=== PATIENT | female | born 1985 | race Caucasian/White ===

== ENCOUNTER 2020-04-25 21:51 | Emergency (ER) | payer MEDICAID ==
[~2020-04-25] VITALS: Ht 175.3 cm; Wt 72.7 kg
[~2020-04-25 21:51] MED LIST: LEVO750T21 PO
[2020-04-25 21:52] VITALS: BP 168/107
== END 2020-04-25 23:31 ==
LOC: ER 21:51
DX: S60.221A Contusion of right hand, initial encounter (principal); S60.511A Abrasion of right hand, initial encounter; F10.10 Alcohol abuse, uncomplicated; Z88.8 Allergy status to other drugs, medicaments and biological substances; Z79.899 Other long term (current) drug therapy; V89.2XXA Person injured in unspecified motor-vehicle accident, traffic, initial encounter; Y93.89 Activity, other specified; Y92.89 Other specified places as the place of occurrence of the external cause; Y99.8 Other external cause status; Y90.0 Blood alcohol level of less than 20 mg/100 ml
CPT/HCPCS: 73130; 99283

== ENCOUNTER 2020-08-03 | Inpatient (IN) | payer MEDICAID ==
[~2020-08-03] VITALS: Ht 175.3 cm; Wt 71.6 kg
[2020-08-03 01:33] LABS: BASOPHILS # (AUTO) 0.1 X10'3 (0-0.2); BASOPHILS % (AUTO) 1.2 % (0-1); EOSINOPHILS % (AUTO) 0.3 % (0-6); HEMOGLOBIN 14.1 g/dl (12.0-16.0); LYMPHOCYTES # (AUTO) 0.7 X10'3 (1.1-4.8); MEAN CORPUSCULAR HEMOGLOBIN 33.5 PG (27.0-31.0); MEAN CORPUSCULAR HGB CONC 34.3 g/dL (33.0-36.5); MEAN CORPUSCULAR VOLUME 97.5 FL (78-98); MEAN PLATELET VOLUME 7.4 FL (7.4-10.4); MONOCYTES # (AUTO) 0.7 X10'3 (0-0.9); MONOCYTES % (AUTO) 13.4 % (2-12); NEUTROPHILS # (AUTO) 3.5 X10'3 (1.8-7.7); NEUTROPHILS % (AUTO) 70.1 % (42-75); PLATELET COUNT 143 X10'3 (140-440); RED BLOOD COUNT 4.21 X10'6 (4.20-5.60); RED CELL DISTRIBUTION WIDTH 14.9 % (11.5-14.5); WHITE BLOOD COUNT 4.9 X10'3 (4.5-11.0)
[2020-08-03 01:47] LABS: ALANINE AMINOTRANSFERASE 26 U/L (12-78); ALBUMIN 4.3 G/DL (3.4-5.0); ALBUMIN/GLOBULIN RATIO 1.1 (1.1-1.5); ALKALINE PHOSPHATASE 64 IU/L (46-116); ANION GAP 12 (8-16); ASPARTATE AMINO TRANSFERASE 39 U/L (10-37); BILIRUBIN,TOTAL 1.6 MG/DL (0.1-1.0); BLOOD UREA NITROGEN 8 MG/DL (7-18); CHLORIDE 98 MMOL/L (99-107); GLUCOSE 108 MG/DL (70-104); POTASSIUM 3.1 MMOL/L (3.5-5.1); SODIUM 136 MMOL/L (135-145); TOTAL CARBON DIOXIDE 25.6 MMOL/L (24-32); TOTAL PROTEIN 8.3 G/DL (6.4-8.2); eGFR 62 ML/MIN
[2020-08-03 01:50] LABS: TROPONIN I < 0.04 NG/ML (0.0-0.05)
[2020-08-03] MEDS ORDERED: ondansetron/PF 4mg/2ml inj IV ONE (01:50)
[2020-08-03] MEDS ORDERED: thiamine 100mg/ml 2ml inj. IV ONE (01:50)
[2020-08-03] MEDS: phenobarbital sod 130mg/ml inj. IV ONE ×2 (01:55→02:17)
[2020-08-03] MEDS: dextrose 5%-normal saline 1,000 ML IV SCH ×5 (01:56→05:50)
[2020-08-03] MEDS ORDERED: phenobarbital sod 130mg/ml inj. IV ONE ×2 (02:35→03:10)
[2020-08-03 02:46] LABS: HCG SERUM QL NEGATIVE
--- NOTE | 2020-08-03 03:00 | NUR ---
Phenobarbital cancelled by pharmacist resulting in delay of medication administration.
[2020-08-03] MEDS ORDERED: potassium Cl 20 mEq SR tablet PO STA (04:22)
[2020-08-03] MEDS ORDERED: magnesium Cl slow-release 64mg tablet PO PRN (05:40)
[2020-08-03] MEDS ORDERED: magnesium 2GM in 50ml NS 50 ML IV PRN (05:40)
[2020-08-03] MEDS ORDERED: potassium CL 10mEq/100ml bag 100 ML IV PRN ×2 (05:40)
[2020-08-03] MEDS ORDERED: acetaminophen 325mg tablet PO PRN (05:40)
[2020-08-03] MEDS ORDERED: normal saline 1000ml 1,000 ML IV SCH (05:40)
[2020-08-03] MEDS ORDERED: magnesium 4gm in 100ml NS 100 ML IV PRN (05:40)
[2020-08-03] MEDS ORDERED: ondansetron/PF 4mg/2ml inj IV PRN (05:40)
[2020-08-03] MEDS ORDERED: potassium Cl 20 mEq SR tablet PO PRN (05:40)
[2020-08-03] MEDS ORDERED: thiamine inj. 100 MG in normal saline 100ml IV soln 100 ML IV ONE (05:55)
[2020-08-03 07:15] VITALS: BP 151/104
[2020-08-03] MEDS: LORazepam 1 MG tablet PO PRN ×2 (07:45→22:30)
[2020-08-03] MEDS: K and/or MAG REPLACEMENT MC SCH ×2 (08:00→20:00)
[2020-08-03] MEDS: pantoprazole 40 MG vial IV SCH (08:37)
[2020-08-03 09:39] VITALS: BP 131/85
[2020-08-03] MEDS: thiamine inj. 100 MG, MVI, adult No.4 with vit. K 10 ML in dextrose 5% water 500ml 500 ML IV SCH ×3 (10:28)
[2020-08-03] MEDS: potassium Cl 20 mEq SR tablet PO PRN ×2 (10:33→15:47)
[2020-08-03] MEDS ORDERED: NO HOME MEDS (12:47)
[2020-08-03] MEDS: carVEDilol 3.125mg tablet PO SCH ×2 (13:11→20:02)
[2020-08-03 13:30] VITALS: BP_SYST 127; BP_SYST 134; BP_SYST 135; BP_DIAS 92; BP_DIAS 93
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
--- NOTE | 2020-08-03 18:06 | NUR ---
Student documentation: I have reviewed and agree with all interventions, assessments performed and documented by Natividad Garcia
--- NOTE | 2020-08-03 18:22 | NUR ---
Patient report given to Magdaleno ARAUJO
[2020-08-03 20:00] VITALS: BP_SYST 115; BP_SYST 121; BP_SYST 123; BP_DIAS 81; BP_DIAS 89; BP_DIAS 90
[2020-08-03 22:00] VITALS: BP 145/102
--- NOTE | 2020-08-03 22:00 | NUR ---
Received report from Magdaleno ARAUJO
--- NOTE | 2020-08-03 22:18 | NUR ---
Physical Therapy Director called saying pt in SVT in the 160's, assessed patient she was in the bathroom having an emesis. Back to her bed, and the heart rate went down to the 110's per Physical Therapy Director.
[2020-08-04 06:00] VITALS: BP 123/81
--- NOTE | 2020-08-04 06:14 | NUR ---
Problems reprioritized. Patient report given, questions answered & plan of care reviewed with Jacki ARAUJO.
[2020-08-04 06:33] LABS: BASOPHILS % (AUTO) 1.1 % (0-1); EOSINOPHILS # (AUTO) 0.1 X10'3 (0-0.9); EOSINOPHILS % (AUTO) 3.5 % (0-6); HEMATOCRIT 37.1 % (35.0-45.0); HEMOGLOBIN 12.7 g/dl (12.0-16.0); LYMPHOCYTES # (AUTO) 0.6 X10'3 (1.1-4.8); LYMPHOCYTES % (AUTO) 17.6 % (21-51); MEAN CORPUSCULAR HGB CONC 34.3 g/dL (33.0-36.5); MEAN CORPUSCULAR VOLUME 99.2 FL (78-98); MEAN PLATELET VOLUME 7.6 FL (7.4-10.4); MONOCYTES # (AUTO) 0.5 X10'3 (0-0.9); MONOCYTES % (AUTO) 14.2 % (2-12); NEUTROPHILS # (AUTO) 2.2 X10'3 (1.8-7.7); NEUTROPHILS % (AUTO) 63.6 % (42-75); PLATELET COUNT 108 X10'3 (140-440); RED BLOOD COUNT 3.74 X10'6 (4.20-5.60); RED CELL DISTRIBUTION WIDTH 14.5 % (11.5-14.5); WHITE BLOOD COUNT 3.5 X10'3 (4.5-11.0)
[2020-08-04 06:37] LABS: ALBUMIN 3.4 G/DL (3.4-5.0); ANION GAP 6 (8-16); BLOOD UREA NITROGEN 9 MG/DL (7-18); BUN/CREATININE RATIO 11.7 (6.6-38.0); CALCIUM 8.4 MG/DL (8.5-10.1); CHLORIDE 102 MMOL/L (99-107); CREATININE 0.77 MG/DL (0.40-0.90); GLUCOSE 94 MG/DL (70-104); MAGNESIUM 1.6 MG/DL (1.5-2.4); POTASSIUM 3.9 MMOL/L (3.5-5.1); SODIUM 134 MMOL/L (135-145); eGFR 84 ML/MIN
[2020-08-04] MEDS: K and/or MAG REPLACEMENT MC SCH (08:00)
[2020-08-04] MEDS ORDERED: lisinopril 5mg tablet PO SCH (08:00)
[2020-08-04] MEDS: thiamine inj. 100 MG, MVI, adult No.4 with vit. K 10 ML in dextrose 5% water 500ml 500 ML IV SCH ×3 (08:55)
[2020-08-04] MEDS: pantoprazole 40 MG vial IV SCH (08:57)
[2020-08-04] MEDS: carVEDilol 3.125mg tablet PO SCH (08:57)
[2020-08-04 10:00] VITALS: BP_SYST 121; BP_SYST 122; BP_DIAS 82; BP_DIAS 84; BP_DIAS 87
[2020-08-04] MEDS ORDERED: FURO-150 PO (10:58)
[2020-08-04] MEDS ORDERED: COR3.125T PO (10:58)
[2020-08-04] MEDS ORDERED: THIA50TA10 PO (10:58)
[2020-08-04] MEDS ORDERED: LISI-642 PO (10:58)
[2020-08-04] MEDS ORDERED: ONDA4TAB6 PO (10:58)
[2020-08-04] MEDS ORDERED: ESOM40CA PO (10:58)
--- NOTE | 2020-08-04 15:19 | NUR ---
pt d/c with instructions, understanding of instructions, as well as information/instruction about community acquire mrsa in her nares, walking out accompanied by nursing staff to private vehicle to go home and f/u w/pcp
== END 2020-08-04 15:03 | disposition home or self-care (01) | DRG 241 ==
LOC: ER 00:01 → ED HOLD 05:40 → ORTHO 4S 07:04
PROVIDERS: ADMIT Internal Medicine; ATTEND Internal Medicine
DX: K29.20 Alcoholic gastritis without bleeding (principal); I11.0 Hypertensive heart disease with heart failure; E86.0 Dehydration; F10.239 Alcohol dependence with withdrawal, unspecified; R00.2 Palpitations; I42.6 Alcoholic cardiomyopathy; R19.7 Diarrhea, unspecified; R55 Syncope and collapse; F12.90 Cannabis use, unspecified, uncomplicated; I50.23 Acute on chronic systolic (congestive) heart failure; N17.9 Acute kidney failure, unspecified; Z79.899 Other long term (current) drug therapy
CPT/HCPCS: 36415; 71045; 80048; 80053; 83735; 83880; 84484; 84703; 85025; 87081; 93005; 93306; 93308; 96374; 96375; 97116; 97161; 99285; C9113; G0378; J2405; J2560; J3411; J7030; J7042; J7060

== ENCOUNTER 2020-08-05 19:48 | Emergency (ER) | payer MEDICAID ==
[~2020-08-05] VITALS: Ht 175.3 cm; Wt 74.9 kg
[~2020-08-05 19:48] MED LIST changes: +COR3.125T PO; +ESOM40CA PO; +FURO-150 PO; -LEVO750T21 PO; +LISI-642 PO; +ONDA4TAB6 PO; +THIA50TA10 PO
--- NOTE | 2020-08-05 20:26 | NUR ---
ACS Protocol orders put in based on patient's EKG rythm and family history. Consulted with Dr. Maria who states to wait on labs and IV and CXR until she sees the patient.
--- NOTE | 2020-08-05 20:56 | NUR ---
Dr. Little in with patient. Dr. Little states no need for labs, IV or CXR at this time. She will be ordering a head CT instead to check for any abnormalities.
--- NOTE | 2020-08-05 21:17 | NUR ---
Pt to CT
[2020-08-05 21:29] VITALS: BP 164/114
== END 2020-08-05 22:33 | disposition home or self-care (01) ==
LOC: ER 19:50
DX: R51.9 Headache, unspecified (principal); Z87.448 Personal history of other diseases of urinary system; Z88.1 Allergy status to other antibiotic agents; Z79.899 Other long term (current) drug therapy
CPT/HCPCS: 70450; 93005; 99284

== ENCOUNTER 2020-09-25 12:11 | Emergency (ER) | payer MEDICAID ==
[~2020-09-25] VITALS: Ht 175.3 cm; Wt 68.7 kg
[2020-09-25 13:12] LABS: BASOPHILS % (AUTO) 0.4 % (0-1); EOSINOPHILS % (AUTO) 0.2 % (0-6); HEMATOCRIT 42.1 % (35.0-45.0); HEMOGLOBIN 14.2 g/dl (12.0-16.0); LYMPHOCYTES # (AUTO) 0.8 X10'3 (1.1-4.8); MEAN CORPUSCULAR HEMOGLOBIN 32.6 PG (27.0-31.0); MEAN CORPUSCULAR HGB CONC 33.8 g/dL (33.0-36.5); MEAN CORPUSCULAR VOLUME 96.6 FL (78-98); MONOCYTES # (AUTO) 0.5 X10'3 (0-0.9); MONOCYTES % (AUTO) 8.4 % (2-12); NEUTROPHILS # (AUTO) 5.1 X10'3 (1.8-7.7); PLATELET COUNT 224 X10'3 (140-440); RED BLOOD COUNT 4.35 X10'6 (4.20-5.60); RED CELL DISTRIBUTION WIDTH 14.8 % (11.5-14.5); WHITE BLOOD COUNT 6.4 X10'3 (4.5-11.0)
[2020-09-25 13:28] LABS: ALANINE AMINOTRANSFERASE 36 U/L (12-78); ALBUMIN 4.4 G/DL (3.4-5.0); ALBUMIN/GLOBULIN RATIO 1.1 (1.1-1.5); ALKALINE PHOSPHATASE 69 IU/L (46-116); ANION GAP 15 (8-16); ASPARTATE AMINO TRANSFERASE 40 U/L (10-37); BILIRUBIN,TOTAL 1.4 MG/DL (0.1-1.0); BLOOD UREA NITROGEN 12 MG/DL (7-18); BUN/CREATININE RATIO 15.8 (6.6-38.0); CHLORIDE 103 MMOL/L (99-107); CREATININE 0.76 MG/DL (0.40-0.90); GLUCOSE 107 MG/DL (70-104); POTASSIUM 3.9 MMOL/L (3.5-5.1); SODIUM 141 MMOL/L (135-145); TOTAL CARBON DIOXIDE 22.8 MMOL/L (24-32); TOTAL PROTEIN 8.5 G/DL (6.4-8.2); eGFR 86 ML/MIN
--- NOTE | 2020-09-25 15:12 | NUR ---
SPOKE TO DR JACKSON REGARDING PATIENT NOT HAVING BEEN SEEN WITH PERSISTENT CHEST PAIN. ORDER RECIEVED FOR ASPIRIN
[2020-09-25] MEDS ORDERED: aspirin 81mg tab.chew PO ONE (15:15)
--- NOTE | 2020-09-25 15:28 | NUR ---
PATIENT IS CURRENTLY TAKING COREG 3.125 MG BID, LISINOPRIL DAILY AND LASIX DAILY
--- NOTE | 2020-09-25 15:30 | NUR ---
PATIENT REPORTS BEING ON A DRINKING BINGE FOR THE LAST 3 DAYS, LAST ETOH AT 6 PM YESTERDAY
--- NOTE | 2020-09-25 15:33 | NUR ---
PATIENT REPORTS DRINKING OVER A PINT OF VODKA AND OR WHISKEY IN THE LAST 3 DAYS, PATIENT IS SLIGHTLY TREMULOUS
[2020-09-25] MEDS ORDERED: ondansetron 4mg rapidly disintigrating tab PO ONE (16:20)
[2020-09-25 17:51] VITALS: BP 127/87
== END 2020-09-25 17:52 | disposition home or self-care (01) ==
LOC: ER 12:12
DX: R00.2 Palpitations (principal); R07.89 Other chest pain; R06.02 Shortness of breath; R11.2 Nausea with vomiting, unspecified; I50.9 Heart failure, unspecified; Z87.440 Personal history of urinary (tract) infections; Z72.89 Other problems related to lifestyle; Z88.1 Allergy status to other antibiotic agents; Z79.899 Other long term (current) drug therapy
CPT/HCPCS: 36415; 71045; 80053; 83880; 84484; 85025; 93005; 99285

== ENCOUNTER 2021-01-30 14:11 | Inpatient (IN) | payer MEDICAID ==
[~2021-01-30] VITALS: Ht 175.3 cm; Wt 59.1 kg
[2021-01-30] MEDS ORDERED: diazepam inj 5 MG/ML inj. IV ONE ×2 (14:25→16:25)
[2021-01-30] MEDS ORDERED: adenosine 3mg/ml 2ml vial IV ONE (14:25)
[2021-01-30] MEDS ORDERED: amiodarone 50MG/ML inj IV ONE (14:30)
[2021-01-30] MEDS ORDERED: amiodarone/D5 360MG/200ML BAG 200 ML IV SCH (14:35)
[2021-01-30 14:45] LABS: BASOPHILS # (AUTO) 0.1 X10'3 (0-0.2); EOSINOPHILS # (AUTO) 0.1 X10'3 (0-0.9); EOSINOPHILS % (AUTO) 1.7 % (0-6); HEMATOCRIT 42.8 % (35.0-45.0); HEMOGLOBIN 14.5 g/dl (12.0-16.0); LYMPHOCYTES # (AUTO) 2.1 X10'3 (1.1-4.8); LYMPHOCYTES % (AUTO) 33.2 % (21-51); MEAN CORPUSCULAR HEMOGLOBIN 33.6 PG (27.0-31.0); MEAN CORPUSCULAR VOLUME 99.1 FL (78-98); MEAN PLATELET VOLUME 7.6 FL (7.4-10.4); MONOCYTES # (AUTO) 0.9 X10'3 (0-0.9); MONOCYTES % (AUTO) 14.2 % (2-12); NEUTROPHILS # (AUTO) 3.1 X10'3 (1.8-7.7); NEUTROPHILS % (AUTO) 49.9 % (42-75); PLATELET COUNT 326 X10'3 (140-440); RED BLOOD COUNT 4.32 X10'6 (4.20-5.60); RED CELL DISTRIBUTION WIDTH 15.2 % (11.5-14.5); WHITE BLOOD COUNT 6.2 X10'3 (4.5-11.0)
[2021-01-30] MEDS ORDERED: thiamine 100mg/ml 2ml inj. IM ONE (14:45)
[2021-01-30] MEDS ORDERED: normal saline 1000ML IV soln IVB ONE (14:45)
[2021-01-30 14:47] LABS: PARTIAL THROMBOPLASTIN TIME 26 SECONDS (22-32)
[2021-01-30 14:55] LABS: ALANINE AMINOTRANSFERASE 23 U/L (12-78); ALBUMIN 2.6 G/DL (3.4-5.0); ALBUMIN/GLOBULIN RATIO 0.5 (1.1-1.5); ALKALINE PHOSPHATASE 86 IU/L (46-116); ANION GAP 22 (8-16); ASPARTATE AMINO TRANSFERASE 40 U/L (10-37); BLOOD UREA NITROGEN 11 MG/DL (7-18); BUN/CREATININE RATIO 11.6 (6.6-38.0); CALCIUM 9.2 MG/DL (8.5-10.1); CHLORIDE 102 MMOL/L (99-107); CREATININE 0.95 MG/DL (0.40-0.90); GLUCOSE 171 MG/DL (70-104); POTASSIUM 3.1 MMOL/L (3.5-5.1); SODIUM 139 MMOL/L (135-145); TOTAL CARBON DIOXIDE 15.3 MMOL/L (24-32); TOTAL PROTEIN 8.2 G/DL (6.4-8.2); eGFR 66 ML/MIN
--- NOTE | 2021-01-30 15:09 | NUR ---
Patient arrived with SOB and chest pain. Dr. Nelson at bedside. Patient in SVT rate 160s, 98% on RA, and SBP >130. Medications administered, see MAR. Patient with improved HR and decreased anxiety but still complaining of 9/10 burning chest pressure.
[2021-01-30] MEDS ORDERED: morphine 4 MG/ML inj SYRINge IV ONE (15:20)
[2021-01-30] MEDS ORDERED: ondansetron/PF 4mg/2ml inj IV ONE (15:40)
[2021-01-30 15:43] LABS: URINE AMPHETAMINE SCREEN POSITIVE (Neg); URINE BARBITUATE SCREEN NEGATIVE (Neg); URINE BENZODIAZEPINES SCREEN NEGATIVE (Neg); URINE CANNABINOID SCREEN NEGATIVE (Neg); URINE COCAINE SCREEN NEGATIVE (Neg); URINE METHADONE SCREEN NEGATIVE (Neg); URINE OPIATE SCREEN NEGATIVE (Neg); URINE PHENCYCLIDINE SCREEN NEGATIVE (Neg)
[2021-01-30] MEDS ORDERED: CARV3.122 PO (16:06)
[2021-01-30] MEDS ORDERED: LISI-790 PO (16:06)
[2021-01-30] MEDS ORDERED: mag hydrox/Alum hydrox/simeth 30ml oral suspension PO PRN (16:20)
[2021-01-30] MEDS ORDERED: HYDROcodone/acetaminophen 10/325mg tab PO PRN (16:20)
[2021-01-30] MEDS ORDERED: morphine 2 MG/ML inj. syringe IV PRN ×2 (16:20)
[2021-01-30] MEDS ORDERED: HYDROcodone/acetaminophen 5mg/325mg tablet PO PRN (16:20)
[2021-01-30] MEDS ORDERED: acetaminophen 325mg tablet PO PRN ×2 (16:20)
[2021-01-30] MEDS ORDERED: magnesium hydroxide 30ml (MOM) UD suspension PO PRN (16:20)
[2021-01-30] MEDS ORDERED: ondansetron/PF 4mg/2ml inj IV PRN (16:20)
[2021-01-30] MEDS ORDERED: normal saline 1000ml 1,000 ML IV ONE (16:25)
[2021-01-30] MEDS ORDERED: haloperidol 5mg tablet PO PRN (16:30)
[2021-01-30] MEDS ORDERED: haloperidol lactate 5mg/ml inj IM PRN (16:30)
[2021-01-30] MEDS ORDERED: thiamine inj. 100 MG in normal saline 100ml IV soln 100 ML IV ONE (16:30)
[2021-01-30 17:53] VITALS: BP 148/77
[2021-01-30] MEDS: LORazepam 2 mg/ml vial IV PRN (19:05)
[2021-01-30 19:20] VITALS: BP 139/87
[2021-01-30] MEDS: carVEDilol 3.125mg tablet PO SCH (19:41)
[2021-01-30 22:00] VITALS: BP 120/82
[2021-01-31] MEDS: LORazepam 2 mg/ml vial IV PRN (01:16)
[2021-01-31 02:00] VITALS: BP 126/75
[2021-01-31 02:46] LABS: BASOPHILS % (AUTO) 1.3 % (0-1); EOSINOPHILS # (AUTO) 0.1 X10'3 (0-0.9); EOSINOPHILS % (AUTO) 3.6 % (0-6); HEMOGLOBIN 11.4 g/dl (12.0-16.0); LYMPHOCYTES # (AUTO) 0.6 X10'3 (1.1-4.8); LYMPHOCYTES % (AUTO) 19.8 % (21-51); MEAN CORPUSCULAR HEMOGLOBIN 34.1 PG (27.0-31.0); MEAN CORPUSCULAR HGB CONC 33.5 g/dL (33.0-36.5); MEAN CORPUSCULAR VOLUME 101.6 FL (78-98); MEAN PLATELET VOLUME 7.6 FL (7.4-10.4); MONOCYTES # (AUTO) 0.4 X10'3 (0-0.9); NEUTROPHILS # (AUTO) 1.9 X10'3 (1.8-7.7); NEUTROPHILS % (AUTO) 62.3 % (42-75); PLATELET COUNT 205 X10'3 (140-440); RED BLOOD COUNT 3.34 X10'6 (4.20-5.60); RED CELL DISTRIBUTION WIDTH 15.4 % (11.5-14.5)
[2021-01-31 02:55] LABS: ALANINE AMINOTRANSFERASE 20 U/L (12-78); ALBUMIN 3.1 G/DL (3.4-5.0); ALKALINE PHOSPHATASE 66 IU/L (46-116); ANION GAP 11 (8-16); ASPARTATE AMINO TRANSFERASE 29 U/L (10-37); BILIRUBIN,TOTAL 1.5 MG/DL (0.1-1.0); BLOOD UREA NITROGEN 18 MG/DL (7-18); BUN/CREATININE RATIO 20.5 (6.6-38.0); CHLORIDE 105 MMOL/L (99-107); CREATININE 0.88 MG/DL (0.40-0.90); GLUCOSE 103 MG/DL (70-104); POTASSIUM 3.6 MMOL/L (3.5-5.1); SODIUM 139 MMOL/L (135-145); TOTAL CARBON DIOXIDE 22.9 MMOL/L (24-32); TOTAL PROTEIN 6.1 G/DL (6.4-8.2); eGFR 72 ML/MIN
[2021-01-31 02:58] LABS: MAGNESIUM 1.6 MG/DL (1.5-2.4); PHOSPHORUS 3.7 MG/DL (2.3-4.5)
[2021-01-31 03:16] LABS: TOTAL CELLS COUNTED 100
[2021-01-31 03:17] LABS: PLATELET ESTIMATE NORMAL
[2021-01-31 06:57] VITALS: BP 135/96
[2021-01-31] MEDS: carVEDilol 3.125mg tablet PO SCH (07:45)
[2021-01-31] MEDS ORDERED: thiamine 100mg tablet PO SCH (08:00)
[2021-01-31] MEDS ORDERED: folic acid 1mg tablet PO SCH (08:00)
[2021-01-31] MEDS ORDERED: multivitamins, therapeutics tablet PO SCH (08:00)
[2021-01-31] MEDS ORDERED: folic acid inj. 2 MG, thiamine inj. 100 MG, MVI, adult No.4 with vit. K 10 ML in dextro... IV SCH ×4 (08:00)
[2021-01-31] MEDS ORDERED: lisinopril 5mg tablet PO SCH (08:00)
[2021-01-31] MEDS ORDERED: thiamine tablet PO (09:04)
[2021-01-31] MEDS ORDERED: LORA-269 PO (09:04)
[2021-01-31] MEDS ORDERED: CARV-49 PO (09:04)
[2021-01-31] MEDS ORDERED: folic acid tablet PO (09:04)
[2021-01-31 10:59] VITALS: BP 130/92
[2021-01-31] MEDS ORDERED: NITR0.4T48 SL (11:01)
[2021-02-01] MEDS ORDERED: LORazepam 1 MG tablet PO PRN (16:30)
[2021-02-01] MEDS ORDERED: LORazepam 2 mg/ml vial IV PRN (16:30)
[2021-02-03] MEDS ORDERED: LORazepam 2 mg/ml vial IV PRN (16:30)
[2021-02-03] MEDS ORDERED: LORazepam 1 MG tablet PO PRN (16:30)
== END 2021-01-31 12:33 | disposition home or self-care (01) | DRG 203 ==
LOC: ER 14:12 → ED HOLD 16:18 → MED 3N 17:30
PROVIDERS: ADMIT Internal Medicine; ATTEND Internal Medicine
DX: R07.89 Other chest pain (principal); I42.6 Alcoholic cardiomyopathy; I50.22 Chronic systolic (congestive) heart failure; F10.20 Alcohol dependence, uncomplicated; F15.10 Other stimulant abuse, uncomplicated; Z60.9 Problem related to social environment, unspecified; F17.200 Nicotine dependence, unspecified, uncomplicated; R03.0 Elevated blood-pressure reading, without diagnosis of hypertension; Z91.14 Patient's other noncompliance with medication regimen; Z79.899 Other long term (current) drug therapy; Z73.3 Stress, not elsewhere classified
CPT/HCPCS: 36415; 71045; 80053; 80305; 83735; 83880; 84100; 84484; 85007; 85025; 85610; 85730; 87081; 93005; 96365; 96375; 99291; G0378; J0153; J2060; J2270; J2405; J3360; J3411; J7030

== ENCOUNTER 2021-02-13 21:57 | Emergency (ER) | payer MEDICAID ==
[~2021-02-13] VITALS: Ht 172.7 cm; Wt 68.2 kg
[~2021-02-13 21:57] MED LIST changes: +CARV-49 PO; -COR3.125T PO; -ESOM40CA PO; -FURO-150 PO; -LISI-642 PO; +LISI-790 PO; +LORA-269 PO; +NITR0.4T48 SL; -ONDA4TAB6 PO; -THIA50TA10 PO; +folic acid tablet PO; +thiamine tablet PO
--- NOTE | 2021-02-13 22:15 | NUR ---
PULLED IV OUT, STATING SHE WANTS TO GO HOME
--- NOTE | 2021-02-13 22:25 | NUR ---
CALLED PT'S MOM TO PICK HER UP, SHE IS [place] D/T TAKING A SLEEPING PILL. WAS UNABLE TO PROVIDE ANY CONTACT INFO FOR ANOTHER RIDE
--- NOTE | 2021-02-13 22:33 | NUR ---
PT IS RESTLESS AND CONTINIUES TO TRY TO GET OUT OF BED AND IS UNSTEADY. 2 PERSON ASSIST TO BSC AND PT VOIDING 400 CC'S. PROVIDED HER PHONE TO TRY TO GET HER TO OPEN IT AND FIND ANY CONTACT NUMBERS TO CALL PT NOT ABLE TO PROVIDE US ANY NUBERS.
[2021-02-13 23:08] VITALS: BP 116/73
--- NOTE | 2021-02-14 01:43 | NUR ---
PT SLEEPING, LYING ON HER RIGHT SIDE, RR 16. sTILL UNABLE TO FIND ANY OTHER CONTACT INFORMATION TO GET HER A RIDE HOME. PTS MOTHER WAS CALLED EARLIER BY VAN BAEZ, BUT SHE WAS UNABLE TO GET THE PATIENT AND HAD NO FURTHER INFO FOR ANYONE ELSE TO CONTACT.
--- NOTE | 2021-02-14 02:59 | NUR ---
PT AWAKENED BREIFLY AND TOLD VAN VILCHIS THAT SHE WANTED TO TAKE A TAXI HOME. PT UPDATED THAT WE CANNOT ALLOW HER TO TAKE TAXI HOME IN HER INTOXICATED STATE AND THAT SHE NEEDS SOMEONE TO PHYSICALLY PICK HER UP OR SHE WILL NEED TO METABOLIZE THE ETOH AND CINTIA WILL NOT BE UNTIL MID MORNING. PT IRRITABLE AND STATES "ILL JUST CRASH HERE" BECAUSE SHE DOES NOT WANT HER FIANCE CALLED. WE HAVE NO OTHER NUMBERS OF CONTACTS FOR HER AND SHE IS NOT PROVIDING ANY ADTL NUMBERS OR HER FIANCE'S NUMBER. TRAILHEAD CONSTRUCTION WORKER UPDATED THAT DAY SHIFT IN AM SHOULD TRY TO CALL HER MOTHER AGAIN HER MOTHER COULD NOT DRIVE SAFELE TO COME GET HER EARLIER DUE TO TAKING SLEEPING MEDICATIONS.
--- NOTE | 2021-02-14 05:27 | NUR ---
remains asleep. per dr. ruff once pt awake and can ambulate safely and has a ride home , she is able to discharge. weigh and charge worker tu aware of plan. plan to call pts mother at shift change to see about transport home.
== END 2021-02-14 07:26 | disposition home or self-care (01) ==
LOC: ER 21:58
DX: F10.10 Alcohol abuse, uncomplicated (principal); F10.129 Alcohol abuse with intoxication, unspecified; I50.9 Heart failure, unspecified; Z87.440 Personal history of urinary (tract) infections; Z72.89 Other problems related to lifestyle; Z88.1 Allergy status to other antibiotic agents; Z79.899 Other long term (current) drug therapy; Y90.9 Presence of alcohol in blood, level not specified
CPT/HCPCS: 99283

== ENCOUNTER 2021-08-24 03:20 | Emergency (ER) | payer MEDICAID ==
[~2021-08-24] VITALS: Ht 175.3 cm; Wt 62.0 kg
[~2021-08-24 03:20] MED LIST changes: -LISI-790 PO; +LISI5TAB22 PO
[2021-08-24] MEDS ORDERED: sulfamethoxazole/trimethoprim DS (800/160mg) tablet PO ONE ×2 (03:35→03:45)
[2021-08-24] MEDS ORDERED: CARV-49 PO (03:41)
[2021-08-24] MEDS ORDERED: LISI5TAB22 PO (03:41)
[2021-08-24] MEDS ORDERED: lisinopril 10 MG tablet PO ONE (03:45)
[2021-08-24] MEDS ORDERED: furosemide 20MG tablet PO ONE (03:45)
[2021-08-24] MEDS ORDERED: rifampin 300mg capsule PO SCH (03:45)
[2021-08-24] MEDS ORDERED: carvedilol 6.25mg tablet PO SCH (03:45)
[2021-08-24] MEDS ORDERED: rifampin 300mg capsule PO ONE (03:45)
[2021-08-24] MEDS ORDERED: carvedilol 6.25mg tablet PO ONE (03:45)
[2021-08-24] MEDS ORDERED: lisinopril 2.5mg tablet PO ONE (03:50)
[2021-08-24] MEDS ORDERED: FURO-150 PO (03:58)
[2021-08-24] MEDS ORDERED: SULF1TAB49 PO (03:58)
[2021-08-24 04:25] VITALS: BP 129/91
== END 2021-08-24 04:30 | disposition home or self-care (01) ==
LOC: ER 03:21
DX: A49.02 Methicillin resistant Staphylococcus aureus infection, unspecified site (principal); F15.10 Other stimulant abuse, uncomplicated; I50.9 Heart failure, unspecified; F17.210 Nicotine dependence, cigarettes, uncomplicated; I10 Essential (primary) hypertension; Z59.00 Homelessness unspecified
CPT/HCPCS: 71045; 99284

== ENCOUNTER 2021-10-11 02:01 | Emergency (ER) | payer MEDICAID ==
[~2021-10-11] VITALS: Ht 175.3 cm; Wt 146.0 kg
[2021-10-11 02:43] LABS: EOSINOPHILS % (AUTO) 0.4 % (0-6); HEMOGLOBIN 11.5 g/dl (12.0-16.0); LYMPHOCYTES # (AUTO) 1.6 X10'3 (1.1-4.8); LYMPHOCYTES % (AUTO) 44.7 % (21-51); MEAN CORPUSCULAR HGB CONC 32.7 g/dL (33.0-36.5); MEAN CORPUSCULAR VOLUME 88.6 FL (78-98); MEAN PLATELET VOLUME 7.7 FL (7.4-10.4); MONOCYTES # (AUTO) 0.5 X10'3 (0-0.9); MONOCYTES % (AUTO) 14.6 % (2-12); NEUTROPHILS # (AUTO) 1.4 X10'3 (1.8-7.7); NEUTROPHILS % (AUTO) 39.3 % (42-75); PLATELET COUNT 227 X10'3 (140-440); RED BLOOD COUNT 3.95 X10'6 (4.20-5.60); RED CELL DISTRIBUTION WIDTH 19.5 % (11.5-14.5); WHITE BLOOD COUNT 3.5 X10'3 (4.5-11.0)
[2021-10-11 03:01] LABS: ALANINE AMINOTRANSFERASE 30 U/L (12-78); ALBUMIN 3.4 G/DL (3.4-5.0); ALBUMIN/GLOBULIN RATIO 1.1 (1.1-1.5); ALKALINE PHOSPHATASE 92 IU/L (46-116); ANION GAP 9 (8-16); ASPARTATE AMINO TRANSFERASE 35 U/L (10-37); BILIRUBIN,TOTAL 1.6 MG/DL (0.1-1.0); BLOOD UREA NITROGEN 18 MG/DL (7-18); BUN/CREATININE RATIO 18.8 (6.6-38.0); CALCIUM 8.8 MG/DL (8.5-10.1); CHLORIDE 100 MMOL/L (99-107); CREATININE 0.96 MG/DL (0.40-0.90); GLUCOSE 89 MG/DL (70-104); SODIUM 136 MMOL/L (135-145); TOTAL CARBON DIOXIDE 27.2 MMOL/L (24-32); TOTAL PROTEIN 6.6 G/DL (6.4-8.2); eGFR 65 ML/MIN
[2021-10-11 03:09] LABS: BILIRUBIN,DIRECT 0.4 MG/DL (0-0.3); LIPASE 87 U/L (73-393)
--- NOTE | 2021-10-11 06:30 | NUR ---
first contact with pt, found resting in bed. rr even and unlabored. awaiting second troponin results. no distress.
[2021-10-11 08:21] VITALS: BP 104/74
--- NOTE | 2021-10-11 08:21 | NUR ---
pt awake, ambulated to restroom with steady gait. still reporting pressure in head and neck area. informed pt of negative troponin results, and plan to dc.
== END 2021-10-11 09:12 | disposition home or self-care (01) ==
LOC: ER 02:01
DX: R07.89 Other chest pain (principal); Z20.822 Contact with and (suspected) exposure to COVID-19; R06.02 Shortness of breath; R11.2 Nausea with vomiting, unspecified; R42 Dizziness and giddiness; R45.1 Restlessness and agitation; I11.0 Hypertensive heart disease with heart failure; I50.9 Heart failure, unspecified; Z87.440 Personal history of urinary (tract) infections; Z86.14 Personal history of Methicillin resistant Staphylococcus aureus infection; Z72.89 Other problems related to lifestyle; Z59.00 Homelessness unspecified; Z79.899 Other long term (current) drug therapy
CPT/HCPCS: 36415; 71045; 80048; 80076; 83690; 83880; 84484; 85025; 87635; 93005; 99285; C9803

== ENCOUNTER 2022-02-12 06:39 | Inpatient (IN) | payer MEDICAID ==
[~2022-02-12] VITALS: Ht 175.3 cm; Wt 83.1 kg
[2022-02-12 08:50] LABS: CLARITY,URINE SLIGHTLY CLOUDY (Clear); COLOR,URINE YELLOW (Yellow); GLUCOSE, URINE NEGATIVE (Neg); KETONES,URINE TRACE mg/dl (Neg); LEUKOCYTE ESTERASE ,URINE SMALL (Neg); NITRITES, URINE NEGATIVE (Neg); OCCULT BLOOD,URINE TRACE-INTACT (Neg); PH,URINE 5.5 (4.8-8.0); PROTEIN,URINE NEGATIVE (Neg)
[2022-02-12 08:53] LABS: UA COLLECTION TYPE CLN CATCH MIDSTREAM
[2022-02-12 08:55] LABS: BACTERIA,URINE 4+ /HPF (Neg); RBC,URINE 0-2 /HPF (0-2); SQUAMOUS EPITHELIAL CELL,UR FEW /LPF (FEW)
[2022-02-12 09:19] LABS: HEMOGLOBIN 12.8 g/dl (12.0-16.0); LYMPHOCYTES # (AUTO) 1.5 X10'3 (1.1-4.8); MEAN CORPUSCULAR VOLUME 95.8 FL (78-98); MONOCYTES # (AUTO) 0.6 X10'3 (0-0.9); PLATELET COUNT 102 X10'3 (140-440); WHITE BLOOD COUNT 3.5 X10'3 (4.5-11.0)
[2022-02-12 09:21] LABS: BASOPHILS % (AUTO) 0.7 % (0-1); EOSINOPHILS % (AUTO) 0.6 % (0-6); HEMATOCRIT 37.7 % (35.0-45.0); LYMPHOCYTES % (AUTO) 42.6 % (21-51); MEAN CORPUSCULAR HEMOGLOBIN 32.6 PG (27.0-31.0); MEAN PLATELET VOLUME 8.7 FL (7.4-10.4); MONOCYTES % (AUTO) 16.7 % (2-12); NEUTROPHILS # (AUTO) 1.4 X10'3 (1.8-7.7); NEUTROPHILS % (AUTO) 39.4 % (42-75); RED BLOOD COUNT 3.93 X10'6 (4.20-5.60); RED CELL DISTRIBUTION WIDTH 16.4 % (11.5-14.5)
[2022-02-12 09:38] LABS: ALANINE AMINOTRANSFERASE 68 U/L (12-78); ALBUMIN/GLOBULIN RATIO 0.7 (1.1-1.5); ALKALINE PHOSPHATASE 161 IU/L (46-116); ANION GAP 10 (8-16); ASPARTATE AMINO TRANSFERASE 130 U/L (10-37); BILIRUBIN,TOTAL 2.3 MG/DL (0.1-1.0); BLOOD UREA NITROGEN 16 MG/DL (7-18); BUN/CREATININE RATIO 17.2 (6.6-38.0); CALCIUM 7.9 MG/DL (8.5-10.1); CHLORIDE 80 MMOL/L (99-107); CREATININE 0.93 MG/DL (0.40-0.90); GLUCOSE 111 MG/DL (70-104); POTASSIUM 3.7 MMOL/L (3.5-5.1); TOTAL CARBON DIOXIDE 25.5 MMOL/L (24-32); TOTAL PROTEIN 7.3 G/DL (6.4-8.2); eGFR 67 ML/MIN
[2022-02-12 09:43] LABS: SODIUM 115 MMOL/L (135-145)
[2022-02-12 09:59] LABS: ANISOCYTOSIS 1+; HYPOCHROMASIA 1+; NUCLEATED RED BLOOD CELLS 1 /100WBC (0-0); PLATELET ESTIMATE DECREASED; TOTAL CELLS COUNTED 100
[2022-02-12] MEDS ORDERED: LORazepam 2 mg/ml vial IV ONE (10:30)
[2022-02-12] MEDS ORDERED: normal saline 1000ML IV soln IVB ONE (10:30)
[2022-02-12] MEDS ORDERED: ondansetron/PF 4mg/2ml inj IV ONE (10:30)
[2022-02-12] MEDS ORDERED: cefTRIAXone 1g/NS 100ml IVPB 100 ML IV ONE (10:40)
[2022-02-12 10:57] LABS: HCG SERUM QL NEGATIVE
[2022-02-12 10:58] LABS: MAGNESIUM 1.3 MG/DL (1.5-2.4)
[2022-02-12] MEDS ORDERED: HYDROcodone/acetaminophen 10/325mg tab PO PRN (11:25)
[2022-02-12] MEDS ORDERED: dextrose 50%-water 50ml dispensing syringe IV PRN (11:25)
[2022-02-12] MEDS ORDERED: haloperidol 5mg tablet PO PRN (11:25)
[2022-02-12] MEDS ORDERED: dicyclomine 10 MG capsule PO PRN (11:25)
[2022-02-12] MEDS ORDERED: HYDROcodone/acetaminophen 5mg/325mg tablet PO PRN (11:25)
[2022-02-12] MEDS ORDERED: morphine 2 MG/ML inj. syringe IV PRN ×2 (11:25)
[2022-02-12] MEDS ORDERED: metoclopramide 5 mg/ml inj IV PRN (11:25)
[2022-02-12] MEDS ORDERED: haloperidol lactate 5mg/ml inj IM PRN (11:25)
[2022-02-12] MEDS ORDERED: acetaminophen 325mg tablet PO PRN (11:25)
[2022-02-12] MEDS ORDERED: mag hydrox/Alum hydrox/simeth 30ml oral suspension PO PRN ×2 (11:25)
[2022-02-12] MEDS: normal saline 1000ml 1,000 ML IV SCH ×2 (12:50→21:25)
[2022-02-12] MEDS: thiamine 100mg/ml 2ml inj. IV SCH ×2 (12:50→21:55)
[2022-02-12] MEDS ORDERED: LISI5TAB22 PO (15:05)
[2022-02-12] MEDS ORDERED: METO-384 PO (15:05)
[2022-02-12] MEDS ORDERED: FURO-149 PO (15:07)
[2022-02-12] MEDS ORDERED: SPIR25TA5 PO (15:08)
[2022-02-12] MEDS: LORazepam 2 mg/ml vial IV PRN ×3 (16:07→21:55)
[2022-02-12] MEDS: docusate sod 100mg capsule PO SCH (20:00)
[2022-02-12] MEDS ORDERED: ringers solution, lactated 500ml IV solution IV ONE (20:25)
[2022-02-13] MEDS: LORazepam 2 mg/ml vial IV PRN ×8 (00:25→21:29)
[2022-02-13 01:46] LABS: BASOPHILS % (AUTO) 0.8 % (0-1); EOSINOPHILS % (AUTO) 0.4 % (0-6); HEMATOCRIT 34.7 % (35.0-45.0); LYMPHOCYTES # (AUTO) 1.4 X10'3 (1.1-4.8); LYMPHOCYTES % (AUTO) 26.5 % (21-51); MEAN CORPUSCULAR HEMOGLOBIN 33.1 PG (27.0-31.0); MEAN CORPUSCULAR HGB CONC 34.5 g/dL (33.0-36.5); MEAN CORPUSCULAR VOLUME 96.1 FL (78-98); MEAN PLATELET VOLUME 8.8 FL (7.4-10.4); MONOCYTES # (AUTO) 0.5 X10'3 (0-0.9); MONOCYTES % (AUTO) 9.3 % (2-12); NEUTROPHILS # (AUTO) 3.4 X10'3 (1.8-7.7); PLATELET COUNT 84 X10'3 (140-440); RED BLOOD COUNT 3.61 X10'6 (4.20-5.60); RED CELL DISTRIBUTION WIDTH 16.5 % (11.5-14.5); WHITE BLOOD COUNT 5.4 X10'3 (4.5-11.0)
[2022-02-13 01:49] LABS: ALBUMIN 2.6 G/DL (3.4-5.0); ANION GAP 9 (8-16); BLOOD UREA NITROGEN 12 MG/DL (7-18); BUN/CREATININE RATIO 12.1 (6.6-38.0); CHLORIDE 86 MMOL/L (99-107); CREATININE 0.99 MG/DL (0.40-0.90); GLUCOSE 93 MG/DL (70-104); TOTAL CARBON DIOXIDE 22.6 MMOL/L (24-32); eGFR 63 ML/MIN
[2022-02-13 02:03] LABS: POTASSIUM 4.2 MMOL/L (3.5-5.1)
[2022-02-13] MEDS ORDERED: ringers solution, lactated 500ml IV solution IV ONE (02:10)
[2022-02-13] MEDS: normal saline 1000ml 1,000 ML IV SCH ×3 (02:32→21:39)
--- NOTE | 2022-02-13 05:54 | NUR ---
Filippo rosas in ED - 02/13/22 at 0557 by JONHNY talked to hospitalist dr Gardner three times to talk about pt condition, specifically about the elevated heart rate. doctor states that sticking to the ETOH protocol is all that is needed at this time.
--- NOTE | 2022-02-13 05:58 | NUR ---
talked to hospitalist dr Gardner three times to talk about pt condition, specifically about the elevated heart rate. doctor states that sticking to the ETOH protocol is all that is needed at this time.
[2022-02-13] MEDS: cefTRIAXone 1g/NS 100ml IVPB 100 ML IV SCH (07:28)
[2022-02-13] MEDS: thiamine 100mg/ml 2ml inj. IV SCH ×3 (07:28→21:28)
[2022-02-13] MEDS: docusate sod 100mg capsule PO SCH ×2 (07:56→21:28)
--- NOTE | 2022-02-13 08:20 | NUR ---
provided with breakfast tray, sitting in bed tolerating well.
[2022-02-13] MEDS: folic acid 1mg/0.2ml inj IV SCH (08:25)
--- NOTE | 2022-02-13 12:00 | NUR ---
provided with breakfast tray, sitting in bed tolerating well.
--- NOTE | 2022-02-13 14:00 | NUR ---
visitor at bedside.
--- NOTE | 2022-02-13 15:31 | NUR ---
telephone report to fang schaefer.
--- NOTE | 2022-02-13 15:48 | NUR ---
Pt received to floor on hospital be. She is very sleepy but able to answer all my questions correctly. She keeps on falling asleep in between questions. VS WNL and no pain. Will continue to monitor.
[2022-02-13 16:00] VITALS: BP 109/68
--- NOTE | 2022-02-13 16:02 | NUR ---
Noted pt BMI 16.4 low via chair scaled wt, however pt ht incorrect 81in w/ last admit ht 69in per EMR. True BMI 22.7 at this time appropriate for age. Addendum: 02/13/22 at [address] Amended: Links added.
[2022-02-13 18:00] VITALS: BP 106/73
--- NOTE | 2022-02-13 18:30 | NUR ---
Problems reprioritized. Patient report given, questions answered & plan of care reviewed with VAN Ramirez.
--- NOTE | 2022-02-13 19:07 | NUR ---
Patient in room U 3018. I have received report from VAN REESE and had the opportunity to ask questions and assume patient care. Addendum: 02/13/22 at 1907 by Ashley Poe RN Amended: Links added.
[2022-02-13 20:00] VITALS: BP 106/73
--- NOTE | 2022-02-13 20:10 | NUR ---
PT SHOWERED SELF IN THE BATHROOM BUT FOODED THE FLOOR AND CLEANED IT UP. IV SITE SAVED,
--- NOTE | 2022-02-13 21:25 | NUR ---
PT MEDICATED WITH ZOFRAN COMPLAINT OF NAUSEA AND ALSO GOING THROUGH dT'S MEDICATED WITH ZOFRAN WELL.
[2022-02-13] MEDS: ondansetron/PF 4mg/2ml inj IV PRN (21:28)
[2022-02-13 22:00] VITALS: BP 106/73
[2022-02-14] VITALS (7 sets, daily range): BP systolic 103–126; BP diastolic 64–94
[2022-02-14] MEDS: LORazepam 2 mg/ml vial IV PRN ×4 (01:01→05:59)
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
--- NOTE | 2022-02-14 03:28 | NUR ---
MEDICATED FOR WITHDRAWL S&S PT HAD SPILLED DRINK ETC ALL OVER FLOOR WITH IMPULSIVENESS. BED ALARM CONTINUES TO BE ON FOR PT SAFETY.
--- NOTE | 2022-02-14 04:32 | NUR ---
PT AWOKE C/O AGITATION WITHDRAW SYMPTOMS. REQUESTING CRACKERS REACHING DONE ON FULL LIQUID DIET. PT MEDICATED WITH ATIVAN PER REQUEST.
--- NOTE | 2022-02-14 06:02 | NUR ---
PT AGGITATED HAD PEED IN EMESIS CONTAINER DID NOT CALL FOR HELP LIGHT HAS BEEN ATTACHED TO HER, BED ALARM ON AND TABS UNIT ON. PT WITH YARED WRAP TO ATTEMPT KEEP IV IN PLACE. PT MEDICATED WITH ATIVAN 2MG FOR AGITATION AND SIGNS OF DRUG ETOH WITHDRAWAL.
--- NOTE | 2022-02-14 06:30 | NUR ---
Patient in room PCU 3012. I have received report from Ashley ARAUJO and had the opportunity to ask questions and assume patient care.
[2022-02-14 06:40] LABS: BASOPHILS # (AUTO) 0.1 X10'3 (0-0.2); EOSINOPHILS % (AUTO) 0.2 % (0-6); HEMATOCRIT 33.8 % (35.0-45.0); HEMOGLOBIN 11.7 g/dl (12.0-16.0); LYMPHOCYTES % (AUTO) 29.1 % (21-51); MEAN CORPUSCULAR HGB CONC 34.6 g/dL (33.0-36.5); MEAN CORPUSCULAR VOLUME 98.4 FL (78-98); MEAN PLATELET VOLUME 9.3 FL (7.4-10.4); MONOCYTES # (AUTO) 0.8 X10'3 (0-0.9); MONOCYTES % (AUTO) 11.2 % (2-12); NEUTROPHILS # (AUTO) 4.1 X10'3 (1.8-7.7); NEUTROPHILS % (AUTO) 58.5 % (42-75); PLATELET COUNT 94 X10'3 (140-440); RED BLOOD COUNT 3.44 X10'6 (4.20-5.60); RED CELL DISTRIBUTION WIDTH 16.5 % (11.5-14.5)
--- NOTE | 2022-02-14 06:45 | NUR ---
Problems reprioritized. Patient report given, questions answered & plan of care reviewed with EVANS Ellis RN. Addendum: 02/14/22 at 0645 by Ashley Poe RN Amended: Links added.
[2022-02-14 06:46] LABS: ALBUMIN 2.5 G/DL (3.4-5.0); ANION GAP 9 (8-16); BLOOD UREA NITROGEN 13 MG/DL (7-18); BUN/CREATININE RATIO 10.8 (6.6-38.0); CHLORIDE 94 MMOL/L (99-107); GLUCOSE 110 MG/DL (70-104); POTASSIUM 4.8 MMOL/L (3.5-5.1); SODIUM 124 MMOL/L (135-145); TOTAL CARBON DIOXIDE 20.7 MMOL/L (24-32); eGFR 50 ML/MIN
[2022-02-14] MEDS: docusate sod 100mg capsule PO SCH ×2 (08:00→20:28)
[2022-02-14] MEDS: thiamine 100mg/ml 2ml inj. IV SCH ×3 (08:00→20:28)
[2022-02-14] MEDS: folic acid 1mg/0.2ml inj IV SCH (08:00)
--- NOTE | 2022-02-14 10:15 | NUR ---
Rounded on pt to find pt sitting in shower stall, water running flooding the bathroom..Pt pulled IV out and removed IV. notified.
[2022-02-14] MEDS ORDERED: LORazepam 2 mg/ml vial IV PRN (11:25)
[2022-02-14] MEDS: normal saline 1000ml 1,000 ML IV SCH ×2 (13:25→19:35)
[2022-02-14] MEDS: LORazepam 1 MG tablet PO PRN ×3 (13:50→22:36)
[2022-02-14] MEDS: cefTRIAXone 1g/NS 100ml IVPB 100 ML IV SCH (16:10)
--- NOTE | 2022-02-14 16:23 | NUR ---
Rounded on pt to find pt sitting in the shower again. Pt is being attended to by her Mother.
--- NOTE | 2022-02-14 16:34 | NUR ---
IV Ceftriaxone finally delivered TO RN from pharmacy..Deyvi at 161
--- NOTE | 2022-02-14 17:38 | NUR ---
Patient in room PCU 3012. I have received report from Ashley ARAUJO and had the opportunity to ask questions and assume patient care. Addendum: 02/14/22 at 1739 by Ly Rocha RN amended time is 0630
--- NOTE | 2022-02-14 18:18 | NUR ---
Patient in room U 3018. I have received report from EVANS Ellis RN and had the opportunity to ask questions and assume patient care. Addendum: 02/14/22 at 1818 by Ashley Poe RN Amended: Links added.
--- NOTE | 2022-02-14 19:00 | NUR ---
PT HAD PULLED IV'S OUT NON COMPLIANT WITH DIET AND TEACHING DONE WITH THE BOYFRIEND ON HER CARE AND THE IMPORTANCE OF HER NOT EATING FOOD TO HEAL AND STOP NAUSEA VOMITING AND DISCOMFORT. PT NEW IV STARTED FOR HER RIGHT LOW AC AREA ON SECOND STICK FIRST ON INFILTRATED. STOCKING OVER IV SITE AND TAPE TO PROTECT IT.
--- NOTE | 2022-02-14 20:00 | NUR ---
HS MEDS GIVEN ALONG WITH PO ATIVAN
--- NOTE | 2022-02-14 22:38 | NUR ---
MEDICARED WITH PO ATIVAN FOR AGGITATION WATER AND JUICE GIVEN TO HER. TOLERATED WELL ATTEMPT TO REORIENT.
[2022-02-15] VITALS (7 sets, daily range): BP systolic 101–133; BP diastolic 75–94
[2022-02-15] MEDS: LORazepam 1 MG tablet PO PRN ×5 (01:52→19:10)
--- NOTE | 2022-02-15 01:54 | NUR ---
awoke requested juice and water and ativan medicated with po ativan.
--- NOTE | 2022-02-15 02:51 | NUR ---
resting without s&s of distress at this time.
--- NOTE | 2022-02-15 04:01 | NUR ---
resting eyes closed without changes.
--- NOTE | 2022-02-15 04:27 | NUR ---
impulsive almost pulled iv out again. iv infusing without redness or swelling after repositioning pt in bed. po ativan given for w.d. symptoms and request.
[2022-02-15] MEDS: normal saline 1000ml 1,000 ML IV SCH (05:04)
--- NOTE | 2022-02-15 06:22 | NUR ---
Problems reprioritized. Patient report given, questions answered & plan of care reviewed with EVANS Ellis RN. Addendum: 02/15/22 at 0623 by Ashley Poe RN Amended: Links added.
[2022-02-15 07:17] LABS: ALBUMIN 2.6 G/DL (3.4-5.0); ANION GAP 13 (8-16); BLOOD UREA NITROGEN 17 MG/DL (7-18); BUN/CREATININE RATIO 12.1 (6.6-38.0); CHLORIDE 93 MMOL/L (99-107); GLUCOSE 104 MG/DL (70-104); POTASSIUM 4.6 MMOL/L (3.5-5.1); SODIUM 124 MMOL/L (135-145); eGFR 42 ML/MIN
[2022-02-15 07:31] LABS: BASOPHILS # (AUTO) 0.1 X10'3 (0-0.2); EOSINOPHILS % (AUTO) 0.3 % (0-6); HEMATOCRIT 35.4 % (35.0-45.0); HEMOGLOBIN 11.9 g/dl (12.0-16.0); LYMPHOCYTES # (AUTO) 1.9 X10'3 (1.1-4.8); LYMPHOCYTES % (AUTO) 30.5 % (21-51); MEAN CORPUSCULAR HEMOGLOBIN 33.2 PG (27.0-31.0); MEAN CORPUSCULAR HGB CONC 33.6 g/dL (33.0-36.5); MEAN CORPUSCULAR VOLUME 98.8 FL (78-98); MONOCYTES # (AUTO) 0.8 X10'3 (0-0.9); MONOCYTES % (AUTO) 13.5 % (2-12); NEUTROPHILS # (AUTO) 3.4 X10'3 (1.8-7.7); NEUTROPHILS % (AUTO) 54.7 % (42-75); PLATELET COUNT 103 X10'3 (140-440); RED BLOOD COUNT 3.58 X10'6 (4.20-5.60); RED CELL DISTRIBUTION WIDTH 16.7 % (11.5-14.5); WHITE BLOOD COUNT 6.2 X10'3 (4.5-11.0)
[2022-02-15] MEDS: docusate sod 100mg capsule PO SCH ×2 (08:00→19:23)
[2022-02-15] MEDS: cefTRIAXone 1g/NS 100ml IVPB 100 ML IV SCH (08:00)
[2022-02-15] MEDS: folic acid 1mg/0.2ml inj IV SCH (08:00)
[2022-02-15] MEDS: thiamine 100mg/ml 2ml inj. IV SCH (08:00)
[2022-02-15 08:19] LABS: ALANINE AMINOTRANSFERASE 151 U/L (12-78); ALBUMIN/GLOBULIN RATIO 0.7 (1.1-1.5); ALKALINE PHOSPHATASE 178 IU/L (46-116); ASPARTATE AMINO TRANSFERASE 472 U/L (10-37); BILIRUBIN,DIRECT 2.3 MG/DL (0-0.3); TOTAL PROTEIN 6.4 G/DL (6.4-8.2)
[2022-02-15] MEDS: sulfamethoxazole/trimethoprim DS (800/160mg) tablet PO SCH ×2 (12:05→19:10)
[2022-02-15] MEDS: furosemide 20 MG/2 ML vial IV SCH ×2 (12:05→19:12)
[2022-02-16] VITALS (8 sets, daily range): BP systolic 0–117; BP diastolic 0–90
[2022-02-16] MEDS: LORazepam 1 MG tablet PO PRN ×3 (00:36→19:16)
[2022-02-16 06:22] LABS: BASOPHILS # (AUTO) 0.1 X10'3 (0-0.2); BASOPHILS % (AUTO) 1.1 % (0-1); EOSINOPHILS % (AUTO) 0.7 % (0-6); HEMATOCRIT 35.8 % (35.0-45.0); LYMPHOCYTES # (AUTO) 1.7 X10'3 (1.1-4.8); LYMPHOCYTES % (AUTO) 30.4 % (21-51); MEAN CORPUSCULAR HEMOGLOBIN 33.4 PG (27.0-31.0); MEAN CORPUSCULAR HGB CONC 33.6 g/dL (33.0-36.5); MEAN CORPUSCULAR VOLUME 99.3 FL (78-98); MEAN PLATELET VOLUME 9.4 FL (7.4-10.4); MONOCYTES # (AUTO) 0.8 X10'3 (0-0.9); MONOCYTES % (AUTO) 14.3 % (2-12); NEUTROPHILS % (AUTO) 53.5 % (42-75); PLATELET COUNT 118 X10'3 (140-440); RED BLOOD COUNT 3.61 X10'6 (4.20-5.60); RED CELL DISTRIBUTION WIDTH 17.9 % (11.5-14.5); WHITE BLOOD COUNT 5.5 X10'3 (4.5-11.0)
--- NOTE | 2022-02-16 06:24 | NUR ---
CHANGE OF SHIFT REPORT GIVEN TO VAN NUNN. ISSUES REPRIORITIZED. PATIENT STABLE. NO ACUTE COMPLAINTS
[2022-02-16 06:29] LABS: ALBUMIN 2.5 G/DL (3.4-5.0); ANION GAP 13 (8-16); BLOOD UREA NITROGEN 23 MG/DL (7-18); BUN/CREATININE RATIO 12.7 (6.6-38.0); CALCIUM 8.2 MG/DL (8.5-10.1); CHLORIDE 90 MMOL/L (99-107); CREATININE 1.81 MG/DL (0.40-0.90); GLUCOSE 93 MG/DL (70-104); POTASSIUM 4.7 MMOL/L (3.5-5.1); SODIUM 121 MMOL/L (135-145); eGFR 31 ML/MIN
[2022-02-16 07:44] LABS: SODIUM 118 MMOL/L (135-145)
[2022-02-16] MEDS: sulfamethoxazole/trimethoprim DS (800/160mg) tablet PO SCH ×2 (08:00→19:16)
[2022-02-16] MEDS: furosemide 20 MG/2 ML vial IV SCH ×2 (08:00→19:15)
[2022-02-16] MEDS: folic acid 1mg tablet PO SCH (08:00)
[2022-02-16] MEDS: thiamine 100mg tablet PO SCH (08:00)
[2022-02-16] MEDS: docusate sod 100mg capsule PO SCH ×2 (08:00→19:16)
[2022-02-16] MEDS ORDERED: LORazepam 2 mg/ml vial IV PRN (11:25)
--- NOTE | 2022-02-16 12:45 | NUR ---
Pt refused Addendum: 02/16/22 at 1247 by Justice Rocha RN Amended: Links added.
--- NOTE | 2022-02-16 18:45 | NUR ---
Patient in room [facility] 3009. I have received report from PCU,RN and had the opportunity to ask questions and assume patient care. Addendum: 02/16/22 at 1846 by Ashley Poe RN Amended: Links added.
--- NOTE | 2022-02-16 18:50 | NUR ---
Patient in room U 3009. I have received report from AYANA ALTAMIRANO RN and had the opportunity to ask questions and assume patient care. Addendum: 02/16/22 at 1850 by Ashley Poe RN Amended: Links added.
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
--- NOTE | 2022-02-16 20:38 | NUR ---
attempt to start iv x3 without success, boyfriend did'nt leave had to ask him to leave again. asked him if i needed to call security since he was in her bed and visiting hours were over at 6;30 pm. boyfriend finally left when they heard i asked for the viscose cellar charge hand.
--- NOTE | 2022-02-16 22:00 | NUR ---
DR SANCHEZ CALLED NOTIFIED PT NO LONGER ON TELE PULLED IV OUT AND ORDERS RECIEVED MAY LEAVE IV OUT AND GIVE 40 PO LASIX TONIGHT AND BID,. IV LASIX DC'D.
[2022-02-16] MEDS ORDERED: furosemide 40mg tablet PO ONE (22:15)
[2022-02-16] MEDS: acetaminophen 325mg tablet PO PRN (22:36)
[2022-02-17] VITALS (9 sets, daily range): BP systolic 86–127; BP diastolic 61–94
--- NOTE | 2022-02-17 04:08 | NUR ---
resting eyes closed without s&s of distress.
--- NOTE | 2022-02-17 05:35 | NUR ---
awoke briefly repositioned & resting without changes.
[2022-02-17 05:52] LABS: BASOPHILS % (AUTO) 0.9 % (0-1); EOSINOPHILS # (AUTO) 0.1 X10'3 (0-0.9); EOSINOPHILS % (AUTO) 1.1 % (0-6); HEMOGLOBIN 11.8 g/dl (12.0-16.0); LYMPHOCYTES # (AUTO) 1.9 X10'3 (1.1-4.8); LYMPHOCYTES % (AUTO) 35.1 % (21-51); MEAN CORPUSCULAR HEMOGLOBIN 33.6 PG (27.0-31.0); MEAN CORPUSCULAR HGB CONC 33.7 g/dL (33.0-36.5); MEAN CORPUSCULAR VOLUME 99.9 FL (78-98); MEAN PLATELET VOLUME 9.6 FL (7.4-10.4); MONOCYTES # (AUTO) 0.8 X10'3 (0-0.9); NEUTROPHILS # (AUTO) 2.6 X10'3 (1.8-7.7); NEUTROPHILS % (AUTO) 47.9 % (42-75); PLATELET COUNT 128 X10'3 (140-440); RED CELL DISTRIBUTION WIDTH 17.7 % (11.5-14.5); WHITE BLOOD COUNT 5.4 X10'3 (4.5-11.0)
[2022-02-17 05:55] LABS: ALBUMIN 2.5 G/DL (3.4-5.0); ANION GAP 10 (8-16); BLOOD UREA NITROGEN 33 MG/DL (7-18); BUN/CREATININE RATIO 15.6 (6.6-38.0); CALCIUM 8.5 MG/DL (8.5-10.1); CHLORIDE 90 MMOL/L (99-107); CREATININE 2.12 MG/DL (0.40-0.90); GLUCOSE 93 MG/DL (70-104); TOTAL CARBON DIOXIDE 19.8 MMOL/L (24-32); eGFR 26 ML/MIN
[2022-02-17 05:56] LABS: POTASSIUM 5.1 MMOL/L (3.5-5.1)
[2022-02-17 06:04] LABS: SODIUM 120 MMOL/L (135-145)
--- NOTE | 2022-02-17 06:05 | NUR ---
DURING REPORT RECEIVED CRITICAL SODIUM OF 120. DR SANCHEZ NOTIFIED RECEIVED ORDER TO START IV NOW NS AT 100/HR.
--- NOTE | 2022-02-17 06:11 | NUR ---
Problems reprioritized. Patient report given, questions answered & plan of care reviewed with VAN ZAMBRANO. Addendum: 02/17/22 at 0612 by Ashley Poe RN Amended: Links added.
[2022-02-17] MEDS ORDERED: normal saline 1000ml 1,000 ML IV SCH (06:15)
--- NOTE | 2022-02-17 06:59 | NUR ---
Patient in room PCU 3009. I have received report from STEPHANIE ARAUJO and had the opportunity to ask questions and assume patient care.
[2022-02-17] MEDS ORDERED: furosemide 40mg tablet PO SCH (08:00)
[2022-02-17] MEDS ORDERED: sodium chloride 1gm tablet PO SCH (08:30)
[2022-02-17] MEDS: folic acid 1mg tablet PO SCH (08:38)
[2022-02-17] MEDS: thiamine 100mg tablet PO SCH (08:38)
[2022-02-17] MEDS: sulfamethoxazole/trimethoprim DS (800/160mg) tablet PO SCH (08:39)
[2022-02-17] MEDS: docusate sod 100mg capsule PO SCH (08:39)
[2022-02-17] MEDS: LORazepam 1 MG tablet PO PRN (08:39)
[2022-02-17 09:11] LABS: ALANINE AMINOTRANSFERASE 237 U/L (12-78); ALBUMIN/GLOBULIN RATIO 0.7 (1.1-1.5); ALKALINE PHOSPHATASE 197 IU/L (46-116); ASPARTATE AMINO TRANSFERASE 544 U/L (10-37); BILIRUBIN,TOTAL 2.2 MG/DL (0.1-1.0); TOTAL PROTEIN 6.3 G/DL (6.4-8.2)
[2022-02-17 09:12] LABS: BILIRUBIN,DIRECT 1.5 MG/DL (0-0.3)
--- NOTE | 2022-02-17 11:00 | NUR ---
Met with patient in regards to alcohol/substance use and to see if patient was interested in resources for treatment options. Patient is hesitant about needing rehab. Patient admits to heavy alcohol use and occasional meth use. I talked to patient about medication to help with cravings. I gave patient a list of resources and I will continue to check on her to see if she changes her mind about inpatient rehab.
--- NOTE | 2022-02-17 11:54 | NUR ---
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 Serum Na 120mmol/L this AM up from 115mmol/L on admit receiving routine thiamine, folic acid for etoh per EMR. Pt PO poor 0-25% initial full liquids and then heart healthy diet 02/16 w/ N/V and diarrhea noted previously in EMR. RD d/w MD regarding liberalizing to regular diet given low serum Na and poor PO trends; MD agreeable pending new diet order at this time. RD d/w RN PO intake; RN reports pt lethargic though PO 50-75% [place] this AM best so far this admit. Given poor PO intake 5 days and recent PO this AM would benefit from Ensure Enlive BIDBD; notified. LBM 02/15 receiving routine colace. Will monitor for further nutrition intervention needs. Rec: 1. liberalize to regular diet given critical low serum Na 120 mmol/L; agreeable pending new diet in EMR 2. Ensure Enlive BIDBD; pending MD verification in EMR; monitor PO trends for frequency adjustment needs 3. thiamine, folic acid supplementation for etoh hx 4. routine bowel care 5. weekly wts Addendum: 02/17/22 at [address] Amended: Links added.
[2022-02-17] MEDS: cefepime 1GM/NS ADD-VANTAGE 100 ML IV SCH (12:51)
[2022-02-17] MEDS: normal saline 1000ml 1,000 ML IV SCH ×2 (12:55→19:24)
--- NOTE | 2022-02-17 15:00 | NUR ---
patient appears very tired and anxious, medicated x2 with ativan with good results. Seen by DR Payton and conor CUTLER. Meds addressed, see emar. Extended PIV placed in THUY , by PICC VAN Garner fluids initiated. Patient commenced on tele. will continue to monitor.
[2022-02-17] MEDS: LORazepam 0.5 MG tablet PO PRN (16:18)
[2022-02-17] MEDS: lactose-reduced food (Ensure Enlive) - 237ml bottle PO SCH (17:44)
--- NOTE | 2022-02-17 18:39 | NUR ---
Problems reprioritized. Patient report given, questions answered & plan of care reviewed with Ankita ARAUJO.
--- NOTE | 2022-02-17 18:49 | NUR ---
Patient in room PCU 3009. I have received report from Kaykay ARAUJO and had the opportunity to ask questions and assume patient care.
--- NOTE | 2022-02-17 19:00 | NUR ---
Patient requested that the tray remains in room as may want to eat some more later. At this time, she also indicated that she wanted to drink the protein shake as well. Addendum: 02/17/22 at 2151 by Ankita Handy RN Amended: Links added.
--- NOTE | 2022-02-17 19:00 | NUR ---
At beginning of shift patient had a low BP of 86/61. Retook manually and it was 90/82. Proceeded to give a 250cc bolus of NS per protocol and then retook manually and BP 98/88. Will continue to monitor.
[2022-02-17] MEDS: magnesium hydroxide 30ml (MOM) UD suspension PO PRN (19:38)
[2022-02-17] MEDS ORDERED: metoprolol tartrate 12.5mg (1/2 tablet) PO SCH (20:00)
[2022-02-18] VITALS (7 sets, daily range): BP systolic 88–113; BP diastolic 61–98
[2022-02-18] MEDS: normal saline 1000ml 1,000 ML IV SCH ×2 (02:53→04:57)
[2022-02-18] MEDS: LORazepam 0.5 MG tablet PO PRN ×2 (04:56→11:29)
--- NOTE | 2022-02-18 05:10 | NUR ---
At around 0450 informed that tele was off of patient. Went in room and found that patient had undone her IV tubing, taken of her tele box and was in the shower. Took several requests, but eventually she got out, dried and back into bed. Gave ativan for anxiety as she stated that "the shower helps her to stay calm". Took manual BP first, was 102/98. Tele monitor back on and fluids infusing again. Addendum: 02/18/22 at 0514 by Ankita Handy RN Patient kept saying 'all I want to do is go home". Re-educated her on the importance of being here and receiving treatment.
--- NOTE | 2022-02-18 06:30 | NUR ---
Problems reprioritized. Patient report given, questions answered & plan of care reviewed with Sharmin ARAUJO.
--- NOTE | 2022-02-18 06:31 | NUR ---
Patient in room PCU 3009. I have received report from VAN BRADLEY, and had the opportunity to ask questions and assume patient care.
[2022-02-18] MEDS: lactose-reduced food (Ensure Enlive) - 237ml bottle PO SCH ×2 (08:26→18:25)
[2022-02-18] MEDS: cefepime 1GM/NS ADD-VANTAGE 100 ML IV SCH (08:27)
[2022-02-18] MEDS: folic acid 1mg tablet PO SCH (08:32)
[2022-02-18] MEDS: metoprolol succinate 25mg (24-HOUR) SR. Tablet PO SCH (08:32)
[2022-02-18] MEDS: naltrexone 50mg tablet PO SCH (08:33)
[2022-02-18] MEDS: thiamine 100mg tablet PO SCH ×2 (08:33→22:19)
[2022-02-18 09:14] LABS: BASOPHILS % (AUTO) 0.7 % (0-1); EOSINOPHILS % (AUTO) 1.2 % (0-6); HEMATOCRIT 31.5 % (35.0-45.0); HEMOGLOBIN 10.5 g/dl (12.0-16.0); LYMPHOCYTES # (AUTO) 1.1 X10'3 (1.1-4.8); LYMPHOCYTES % (AUTO) 25.9 % (21-51); MEAN CORPUSCULAR HEMOGLOBIN 33.2 PG (27.0-31.0); MEAN CORPUSCULAR HGB CONC 33.4 g/dL (33.0-36.5); MEAN CORPUSCULAR VOLUME 99.5 FL (78-98); MEAN PLATELET VOLUME 9.6 FL (7.4-10.4); MONOCYTES # (AUTO) 0.7 X10'3 (0-0.9); MONOCYTES % (AUTO) 16.5 % (2-12); NEUTROPHILS # (AUTO) 2.4 X10'3 (1.8-7.7); NEUTROPHILS % (AUTO) 55.7 % (42-75); PLATELET COUNT 146 X10'3 (140-440); RED BLOOD COUNT 3.16 X10'6 (4.20-5.60); RED CELL DISTRIBUTION WIDTH 17.8 % (11.5-14.5); WHITE BLOOD COUNT 4.3 X10'3 (4.5-11.0)
[2022-02-18 09:24] LABS: ALANINE AMINOTRANSFERASE 245 U/L (12-78); ALBUMIN 2.3 G/DL (3.4-5.0); ALBUMIN/GLOBULIN RATIO 0.7 (1.1-1.5); ALKALINE PHOSPHATASE 191 IU/L (46-116); ANION GAP 11 (8-16); ASPARTATE AMINO TRANSFERASE 467 U/L (10-37); BILIRUBIN,TOTAL 1.5 MG/DL (0.1-1.0); BLOOD UREA NITROGEN 37 MG/DL (7-18); BUN/CREATININE RATIO 19.3 (6.6-38.0); CALCIUM 7.8 MG/DL (8.5-10.1); CHLORIDE 93 MMOL/L (99-107); CREATININE 1.92 MG/DL (0.40-0.90); GLUCOSE 104 MG/DL (70-104); POTASSIUM 4.3 MMOL/L (3.5-5.1); SODIUM 124 MMOL/L (135-145); TOTAL CARBON DIOXIDE 20.2 MMOL/L (24-32); TOTAL PROTEIN 5.8 G/DL (6.4-8.2); eGFR 29 ML/MIN
[2022-02-18 09:53] LABS: TOTAL CELLS COUNTED 100
[2022-02-18 09:54] LABS: ANISOCYTOSIS 1+; PLATELET ESTIMATE NORMAL
--- NOTE | 2022-02-18 10:32 | NUR ---
PT REQUESTING ATIVAN, PT REMINDED THAT MED IS Q 6HR AND THAT IT'S NOT YET TIME. PT BECOMES TEARFUL AND PUTS OUT HER HANDS AND RIGHT FOOT, SHAKING THEM, REPORTING THAT SHE IS "SHAKING". PT HAS BEEN OBSERVED SLEEPING THROUGHOUT THE MORNING, LYING STILL IN HER BED.
--- NOTE | 2022-02-18 10:52 | NUR ---
PT IS RESTING, NO S/S OF DISTRESS. NO TREMBLING.
[2022-02-18] MEDS ORDERED: gabapentin 400mg capsule PO SCH (16:00)
--- NOTE | 2022-02-18 18:19 | NUR ---
Problems reprioritized. Patient report given, questions answered & plan of care reviewed with VAN BRADLEY.
--- NOTE | 2022-02-18 18:30 | NUR ---
Patient in room PCU 3009. I have received report from Sharmin ARAUJO and had the opportunity to ask questions and assume patient care.
[2022-02-18] MEDS: gabapentin 100mg capsule PO SCH (22:19)
[2022-02-19 02:00] VITALS: BP 101/65
[2022-02-19] MEDS: normal saline 1000ml 1,000 ML IV SCH ×2 (02:35→03:46)
--- NOTE | 2022-02-19 05:37 | NUR ---
Twice during NOC shift, found runny yellow emesis in garbage bin. Asked patient if she was feeling nauseous and she stated "no, its just when I wake up feeling hungry". I offered her some crackers to eat and she said" I'm fine, I have my shakes right there". Pt. then fell back to sleep.
[2022-02-19 06:00] VITALS: BP 96/69
--- NOTE | 2022-02-19 06:25 | NUR ---
Problems reprioritized. Patient report given, questions answered & plan of care reviewed with Sharmin ARAUJO.
--- NOTE | 2022-02-19 06:58 | NUR ---
Patient in room PCU 3009. I have received report from VAN BRADLEY, and had the opportunity to ask questions and assume patient care.
[2022-02-19] MEDS: cefepime 1GM/NS ADD-VANTAGE 100 ML IV SCH (08:13)
[2022-02-19] MEDS: gabapentin 100mg capsule PO SCH ×3 (08:15→21:26)
[2022-02-19] MEDS: naltrexone 50mg tablet PO SCH (08:15)
[2022-02-19] MEDS: folic acid 1mg tablet PO SCH (08:15)
[2022-02-19] MEDS: thiamine 100mg tablet PO SCH ×2 (08:16→21:26)
[2022-02-19] MEDS: multivitamins, therapeutics tablet PO SCH (08:16)
[2022-02-19] MEDS: lactose-reduced food (Ensure Enlive) - 237ml bottle PO SCH ×2 (08:20→18:00)
[2022-02-19 11:00] VITALS: BP 111/86
[2022-02-19] MEDS: metoprolol succinate 25mg (24-HOUR) SR. Tablet PO SCH (13:30)
[2022-02-19 15:00] VITALS: BP 99/66
[2022-02-19 17:00] LABS: HBSAG SCREEN Negative (Negative); HEP A AB, IGM Negative (Negative)
[2022-02-19 18:00] VITALS: BP 96/70
--- NOTE | 2022-02-19 18:59 | NUR ---
Problems reprioritized. Patient report given, questions answered & plan of care reviewed with VAN GRAHAM.
--- NOTE | 2022-02-19 19:09 | NUR ---
Patient in room PCU 3009. I have received report from VAN Finney and had the opportunity to ask questions and assume patient care.
[2022-02-19 22:00] VITALS: BP 92/65
[2022-02-20] VITALS (8 sets, daily range): BP systolic 89–113; BP diastolic 62–81
[2022-02-20] MEDS: normal saline 1000ml 1,000 ML IV SCH (05:09)
[2022-02-20 06:34] LABS: BASOPHILS % (AUTO) 1.2 % (0-1); EOSINOPHILS % (AUTO) 0.4 % (0-6); HEMATOCRIT 35.5 % (35.0-45.0); HEMOGLOBIN 11.7 g/dl (12.0-16.0); LYMPHOCYTES # (AUTO) 0.9 X10'3 (1.1-4.8); LYMPHOCYTES % (AUTO) 23.4 % (21-51); MEAN CORPUSCULAR VOLUME 102.9 FL (78-98); MONOCYTES # (AUTO) 0.7 X10'3 (0-0.9); MONOCYTES % (AUTO) 16.9 % (2-12); NEUTROPHILS # (AUTO) 2.3 X10'3 (1.8-7.7); NEUTROPHILS % (AUTO) 58.1 % (42-75); PLATELET COUNT 198 X10'3 (140-440); RED BLOOD COUNT 3.45 X10'6 (4.20-5.60); RED CELL DISTRIBUTION WIDTH 18.1 % (11.5-14.5); WHITE BLOOD COUNT 3.9 X10'3 (4.5-11.0)
--- NOTE | 2022-02-20 06:46 | NUR ---
Problems reprioritized. Patient report given, questions answered & plan of care reviewed with VAN Finney.
[2022-02-20 06:48] LABS: ALANINE AMINOTRANSFERASE 399 U/L (12-78); ALBUMIN 2.4 G/DL (3.4-5.0); ALBUMIN/GLOBULIN RATIO 0.6 (1.1-1.5); ALKALINE PHOSPHATASE 225 IU/L (46-116); ANION GAP 10 (8-16); ASPARTATE AMINO TRANSFERASE 764 U/L (10-37); BLOOD UREA NITROGEN 28 MG/DL (7-18); BUN/CREATININE RATIO 17.7 (6.6-38.0); CALCIUM 8.1 MG/DL (8.5-10.1); CHLORIDE 94 MMOL/L (99-107); CREATININE 1.58 MG/DL (0.40-0.90); GLUCOSE 85 MG/DL (70-104); MAGNESIUM 1.9 MG/DL (1.5-2.4); PHOSPHORUS 3.4 MG/DL (2.3-4.5); POTASSIUM 4.6 MMOL/L (3.5-5.1); SODIUM 122 MMOL/L (135-145); TOTAL CARBON DIOXIDE 18.2 MMOL/L (24-32); TOTAL PROTEIN 6.1 G/DL (6.4-8.2); eGFR 37 ML/MIN
--- NOTE | 2022-02-20 07:28 | NUR ---
Patient in room PCU 3009. I have received report from VAN GRAHAM, and had the opportunity to ask questions and assume patient care.
[2022-02-20] MEDS: lactose-reduced food (Ensure Enlive) - 237ml bottle PO SCH ×2 (07:30→17:30)
[2022-02-20] MEDS: heparin, porcine 5000 units/ml vial SQ SCH ×2 (08:00→20:13)
[2022-02-20] MEDS: metoprolol succinate 25mg (24-HOUR) SR. Tablet PO SCH (08:00)
[2022-02-20] MEDS: thiamine 100mg tablet PO SCH ×2 (08:00→20:13)
[2022-02-20] MEDS: multivitamins, therapeutics tablet PO SCH (08:00)
[2022-02-20] MEDS: gabapentin 100mg capsule PO SCH ×3 (08:00→20:13)
[2022-02-20] MEDS: cefepime 1GM/NS ADD-VANTAGE 100 ML IV SCH (08:54)
[2022-02-20] MEDS: folic acid 1mg tablet PO SCH (08:58)
[2022-02-20] MEDS: naltrexone 50mg tablet PO SCH (13:15)
--- NOTE | 2022-02-20 13:54 | NUR ---
Reassessment: Patient's diet has been appropriately liberalized to regular though overall PO intake remains poor with mostly 25% PO intake not meeting estimated nutrient needs. Pt receiving an Ensure Enlive BIDBD though only documented to have consumed 25% of one out of five ONS. Attempted visit with pt at bedside however pt sleeping and unable to stay awake for RD visit. RD contact information placed at patient's bedside. Noted PO intake did slightly improve to 50-75% of meal at lunch with 50% PO intake of ONS. Hopeful that PO intake will continue to improve though if PO intake does not improve pt would benefit from NGT placement for EN given prolonged insufficient PO intake. [facility] 02/19. Will continue to follow closely. Recommendations: 1. Continue regular diet given continuously low serum Na with poor PO intake 2. Ensure Enlive BIDBD; monitor PO trends for frequency adjustment needs 3. Consider NGT placement for EN if PO intake does not improve 4. Continue routine Thiamine, Folic acid, and MVI for EtOH hx with elevated MCV 5. Bowel care PRN 6. Weekly scaled weights Addendum: 02/20/22 at [address] Amended: Links added.
--- NOTE | 2022-02-20 14:30 | NUR ---
PAGE SENT 4421, MARCOS MEZA, PT'S BP CONTINUES TO BE LOW. MANUAL BP 92/50 HR 95. THANK YOU. BOWEN [id number]
[2022-02-20 17:01] LABS: URINE AMPHETAMINE SCREEN NEGATIVE (Neg); URINE BARBITUATE SCREEN NEGATIVE (Neg); URINE BENZODIAZEPINES SCREEN NEGATIVE (Neg); URINE CANNABINOID SCREEN NEGATIVE (Neg); URINE COCAINE SCREEN NEGATIVE (Neg); URINE METHADONE SCREEN NEGATIVE (Neg); URINE OPIATE SCREEN NEGATIVE (Neg); URINE PHENCYCLIDINE SCREEN NEGATIVE (Neg)
--- NOTE | 2022-02-20 19:02 | NUR ---
Problems reprioritized. Patient report given, questions answered & plan of care reviewed with VAN GRAAHM.
[2022-02-21] MEDS: magnesium hydroxide 30ml (MOM) UD suspension PO PRN (01:44)
[2022-02-21 02:00] VITALS: BP 106/82
[2022-02-21 06:00] VITALS: BP 90/64
--- NOTE | 2022-02-21 06:38 | NUR ---
Problems reprioritized. Patient report given, questions answered & plan of care reviewed with VAN Urias.
[2022-02-21 07:35] LABS: BASOPHILS # (AUTO) 0.1 X10'3 (0-0.2); BASOPHILS % (AUTO) 1.1 % (0-1); EOSINOPHILS % (AUTO) 0.8 % (0-6); HEMATOCRIT 35.8 % (35.0-45.0); HEMOGLOBIN 11.8 g/dl (12.0-16.0); LYMPHOCYTES # (AUTO) 1.6 X10'3 (1.1-4.8); LYMPHOCYTES % (AUTO) 31.7 % (21-51); MEAN CORPUSCULAR HEMOGLOBIN 33.9 PG (27.0-31.0); MEAN CORPUSCULAR HGB CONC 33.1 g/dL (33.0-36.5); MEAN CORPUSCULAR VOLUME 102.4 FL (78-98); MEAN PLATELET VOLUME 8.7 FL (7.4-10.4); MONOCYTES # (AUTO) 0.9 X10'3 (0-0.9); MONOCYTES % (AUTO) 16.7 % (2-12); NEUTROPHILS # (AUTO) 2.6 X10'3 (1.8-7.7); NEUTROPHILS % (AUTO) 49.7 % (42-75); PLATELET COUNT 221 X10'3 (140-440); RED CELL DISTRIBUTION WIDTH 18.2 % (11.5-14.5); WHITE BLOOD COUNT 5.1 X10'3 (4.5-11.0)
[2022-02-21] MEDS: metoprolol succinate 25mg (24-HOUR) SR. Tablet PO SCH (07:43)
[2022-02-21] MEDS: folic acid 1mg tablet PO SCH (07:43)
[2022-02-21] MEDS: thiamine 100mg tablet PO SCH ×2 (07:44→20:00)
[2022-02-21 07:45] VITALS: BP 100/79
[2022-02-21] MEDS: lactose-reduced food (Ensure Enlive) - 237ml bottle PO SCH ×2 (07:45→17:30)
[2022-02-21] MEDS: cefepime 1GM/NS ADD-VANTAGE 100 ML IV SCH (07:45)
[2022-02-21] MEDS: multivitamins, therapeutics tablet PO SCH (07:45)
[2022-02-21] MEDS: heparin, porcine 5000 units/ml vial SQ SCH ×2 (07:46→20:01)
[2022-02-21 07:53] LABS: ALANINE AMINOTRANSFERASE 326 U/L (12-78); ALBUMIN 2.3 G/DL (3.4-5.0); ALBUMIN/GLOBULIN RATIO 0.7 (1.1-1.5); ALKALINE PHOSPHATASE 191 IU/L (46-116); ANION GAP 11 (8-16); ASPARTATE AMINO TRANSFERASE 519 U/L (10-37); BILIRUBIN,TOTAL 1.5 MG/DL (0.1-1.0); BLOOD UREA NITROGEN 26 MG/DL (7-18); BUN/CREATININE RATIO 19.7 (6.6-38.0); CALCIUM 7.9 MG/DL (8.5-10.1); CHLORIDE 93 MMOL/L (99-107); CREATININE 1.32 MG/DL (0.40-0.90); GLUCOSE 80 MG/DL (70-104); MAGNESIUM 1.8 MG/DL (1.5-2.4); PHOSPHORUS 2.5 MG/DL (2.3-4.5); POTASSIUM 4.4 MMOL/L (3.5-5.1); SODIUM 124 MMOL/L (135-145); TOTAL CARBON DIOXIDE 20.2 MMOL/L (24-32); TOTAL PROTEIN 5.8 G/DL (6.4-8.2); eGFR 45 ML/MIN
[2022-02-21] MEDS: gabapentin 100mg capsule PO SCH ×3 (07:54→20:00)
[2022-02-21] MEDS: naltrexone 50mg tablet PO SCH (07:54)
--- NOTE | 2022-02-21 10:29 | NUR ---
Per sitter in the room, patient was caught drinking hand patient portal representative. She states the patient finishes her yogurt cup and is filling it up by the sink. Patient also this AM had some intermittent vomiting and diarrhea according to aide which may be related. Dr Marcial notified. Hand patient portal representative is in the process of being removed from room.
[2022-02-21 12:00] VITALS: BP 103/79
--- NOTE | 2022-02-21 13:20 | NUR ---
Pt refuses life vest education, life vest rep will come back at 1800 tonight for training if patient is more agreeable
[2022-02-21] MEDS: lisinopril 10 MG tablet PO SCH (13:44)
[2022-02-21] MEDS: LORazepam 0.5 MG tablet PO PRN ×2 (13:46→20:00)
[2022-02-21 14:00] VITALS: BP_SYST 103; BP_SYST 108; BP_SYST 99; BP_DIAS 70; BP_DIAS 78; BP_DIAS 79
--- NOTE | 2022-02-21 17:00 | NUR ---
Paula chavez rep called to see if patient was more agreeable to teaching at this time but patient is getting agitated and refuses teaching. Paula chavez rep will try again tomorrow.
--- NOTE | 2022-02-21 17:30 | NUR ---
Alis Alexis called, Pt upset, agitated and yelling through hallway. Dr Marcial notified, and nursing supervisor asphalt paving notified. Patient saying she wants to leave hospital and why are we holding her here. Pt is on a 179 and has a sitter. Security says they cant force her to stay, Nursing sup says if she wants to go we can't hold her. Dr Marcial says to call [employer] if she leaves and let them know she is on a hold for suicidal ideations and they can decide what they want to do if she goes AMA.
--- NOTE | 2022-02-21 17:50 | NUR ---
Pt has calmed down some at this time and does not want to leave ama.
--- NOTE | 2022-02-21 18:30 | NUR ---
Report given to Sergio ARAUJO, pt rebecca at this time.
[2022-02-21] MEDS: furosemide 20 MG/2 ML vial IV SCH (20:00)
[2022-02-21 22:00] VITALS: BP 94/67
[2022-02-22 06:50] LABS: BASOPHILS % (AUTO) 1.3 % (0-1); EOSINOPHILS % (AUTO) 0.6 % (0-6); HEMATOCRIT 32.7 % (35.0-45.0); HEMOGLOBIN 10.8 g/dl (12.0-16.0); LYMPHOCYTES % (AUTO) 24.7 % (21-51); MEAN CORPUSCULAR HEMOGLOBIN 33.2 PG (27.0-31.0); MEAN CORPUSCULAR VOLUME 100.5 FL (78-98); MEAN PLATELET VOLUME 8.9 FL (7.4-10.4); MONOCYTES # (AUTO) 0.6 X10'3 (0-0.9); MONOCYTES % (AUTO) 16.2 % (2-12); NEUTROPHILS # (AUTO) 2.3 X10'3 (1.8-7.7); NEUTROPHILS % (AUTO) 57.2 % (42-75); PLATELET COUNT 225 X10'3 (140-440); RED BLOOD COUNT 3.25 X10'6 (4.20-5.60); RED CELL DISTRIBUTION WIDTH 18.5 % (11.5-14.5)
[2022-02-22 07:01] LABS: ALANINE AMINOTRANSFERASE 254 U/L (12-78); ALBUMIN 2.1 G/DL (3.4-5.0); ALBUMIN/GLOBULIN RATIO 0.6 (1.1-1.5); ALKALINE PHOSPHATASE 172 IU/L (46-116); ANION GAP 7 (8-16); ASPARTATE AMINO TRANSFERASE 317 U/L (10-37); BILIRUBIN,TOTAL 1.5 MG/DL (0.1-1.0); BLOOD UREA NITROGEN 23 MG/DL (7-18); BUN/CREATININE RATIO 18.9 (6.6-38.0); CHLORIDE 97 MMOL/L (99-107); CREATININE 1.22 MG/DL (0.40-0.90); GLUCOSE 110 MG/DL (70-104); MAGNESIUM 1.8 MG/DL (1.5-2.4); PHOSPHORUS 2.5 MG/DL (2.3-4.5); POTASSIUM 4.1 MMOL/L (3.5-5.1); SODIUM 128 MMOL/L (135-145); TOTAL CARBON DIOXIDE 23.6 MMOL/L (24-32); TOTAL PROTEIN 5.6 G/DL (6.4-8.2); eGFR 49 ML/MIN
[2022-02-22] MEDS: lactose-reduced food (Ensure Enlive) - 237ml bottle PO SCH ×2 (07:37→17:36)
[2022-02-22 09:00] VITALS: BP 104/82
[2022-02-22] MEDS: gabapentin 100mg capsule PO SCH ×3 (09:03→20:45)
[2022-02-22] MEDS: naltrexone 50mg tablet PO SCH (09:06)
[2022-02-22] MEDS: thiamine 100mg tablet PO SCH ×2 (09:07→20:45)
[2022-02-22] MEDS: metoprolol succinate 25mg (24-HOUR) SR. Tablet PO SCH (09:07)
[2022-02-22] MEDS: multivitamins, therapeutics tablet PO SCH (09:07)
[2022-02-22] MEDS: folic acid 1mg tablet PO SCH (09:08)
[2022-02-22] MEDS: LORazepam 0.5 MG tablet PO PRN ×2 (09:08→22:57)
[2022-02-22] MEDS: lisinopril 10 MG tablet PO SCH (09:08)
[2022-02-22] MEDS: heparin, porcine 5000 units/ml vial SQ SCH ×2 (09:09→20:45)
[2022-02-22] MEDS: furosemide 20 MG/2 ML vial IV SCH ×2 (09:09→20:45)
[2022-02-22] MEDS: cefepime 1GM/NS ADD-VANTAGE 100 ML IV SCH (09:09)
[2022-02-22 11:00] VITALS: BP 104/76
[2022-02-22 15:00] VITALS: BP 94/64
[2022-02-22 18:00] VITALS: BP 118/88
--- NOTE | 2022-02-22 19:04 | NUR ---
Report given to Lorie RN, pt sleeping/resting comfortably with sitter at bedside
[2022-02-22] MEDS: polyvinyl alcohol ophthalmic drops 15ml bottle EACHEYE PRN (20:45)
[2022-02-22 22:00] VITALS: BP 96/70
[2022-02-23] VITALS (7 sets, daily range): BP systolic 96–112; BP diastolic 5–79
[2022-02-23 06:51] LABS: EOSINOPHILS % (AUTO) 0.6 % (0-6); HEMATOCRIT 34.3 % (35.0-45.0); HEMOGLOBIN 11.2 g/dl (12.0-16.0); MEAN CORPUSCULAR HGB CONC 32.6 g/dL (33.0-36.5); MONOCYTES # (AUTO) 0.7 X10'3 (0-0.9); RED CELL DISTRIBUTION WIDTH 18.8 % (11.5-14.5)
[2022-02-23 06:54] LABS: BASOPHILS # (AUTO) 0.2 X10'3 (0-0.2); BASOPHILS % (AUTO) 3.8 % (0-1); LYMPHOCYTES # (AUTO) 1.5 X10'3 (1.1-4.8); LYMPHOCYTES % (AUTO) 34.2 % (21-51); MEAN CORPUSCULAR HEMOGLOBIN 32.9 PG (27.0-31.0); MEAN CORPUSCULAR VOLUME 100.9 FL (78-98); MEAN PLATELET VOLUME 8.4 FL (7.4-10.4); MONOCYTES % (AUTO) 16.5 % (2-12); NEUTROPHILS % (AUTO) 44.9 % (42-75); PLATELET COUNT 242 X10'3 (140-440); WHITE BLOOD COUNT 4.4 X10'3 (4.5-11.0)
[2022-02-23 07:07] LABS: ALANINE AMINOTRANSFERASE 229 U/L (12-78); ALBUMIN 2.4 G/DL (3.4-5.0); ALBUMIN/GLOBULIN RATIO 0.6 (1.1-1.5); ALKALINE PHOSPHATASE 162 IU/L (46-116); ANION GAP 8 (8-16); ASPARTATE AMINO TRANSFERASE 220 U/L (10-37); BILIRUBIN,TOTAL 1.4 MG/DL (0.1-1.0); BLOOD UREA NITROGEN 18 MG/DL (7-18); BUN/CREATININE RATIO 16.5 (6.6-38.0); CALCIUM 8.3 MG/DL (8.5-10.1); CHLORIDE 103 MMOL/L (99-107); CREATININE 1.09 MG/DL (0.40-0.90); GLUCOSE 91 MG/DL (70-104); MAGNESIUM 1.8 MG/DL (1.5-2.4); PHOSPHORUS 3.1 MG/DL (2.3-4.5); POTASSIUM 4.5 MMOL/L (3.5-5.1); SODIUM 136 MMOL/L (135-145); TOTAL CARBON DIOXIDE 24.7 MMOL/L (24-32); TOTAL PROTEIN 6.1 G/DL (6.4-8.2); eGFR 56 ML/MIN
[2022-02-23] MEDS: lactose-reduced food (Ensure Enlive) - 237ml bottle PO SCH ×2 (07:30→17:32)
[2022-02-23] MEDS: furosemide 20 MG/2 ML vial IV SCH ×2 (08:00→20:40)
[2022-02-23] MEDS: gabapentin 100mg capsule PO SCH ×3 (08:00→20:41)
[2022-02-23] MEDS: heparin, porcine 5000 units/ml vial SQ SCH ×2 (08:00→20:40)
--- NOTE | 2022-02-23 08:38 | NUR ---
Reassessment: Pt continues on Regular diet w/ some improvement in PO intake, avg 40% x 10 meals though had recent increase to 50-75% last 2 meals. Pt also intermittently consumes ONS though not significant to meet needs. Pt has been noted to be agitated at times and also consumed some hand closed circuit screen watcher. Pt could benefit from NG feeding for supplemental nutrition, though unsure if pt would be cooperative. LBM 02/21 receiving PRN bowel care. Will continue to monitor. Recommendations: 1. Continue regular diet as tolerated 2. Ensure Enlive BIDBD; monitor PO trends for frequency adjustment needs 3. Initiation of Nutrition Support given prolonged poor PO 4. Continue routine Thiamine, Folic acid, and MVI for EtOH hx with elevated MCV 5. Bowel care PRN 6. Weekly scaled weights Addendum: 02/23/22 at [address] Amended: Links added.
[2022-02-23 09:09] LABS: TOTAL CELLS COUNTED 100
[2022-02-23 09:10] LABS: ANISOCYTOSIS 2+; PLATELET ESTIMATE NORMAL; POLYCHROMASIA FEW
[2022-02-23] MEDS: multivitamins, therapeutics tablet PO SCH (10:20)
[2022-02-23] MEDS: naltrexone 50mg tablet PO SCH (10:21)
[2022-02-23] MEDS: metoprolol succinate 25mg (24-HOUR) SR. Tablet PO SCH (10:21)
[2022-02-23] MEDS: thiamine 100mg tablet PO SCH ×2 (10:21→20:40)
[2022-02-23] MEDS: folic acid 1mg tablet PO SCH (10:22)
[2022-02-23] MEDS: lisinopril 10 MG tablet PO SCH (10:22)
[2022-02-23] MEDS: polyvinyl alcohol ophthalmic drops 15ml bottle EACHEYE PRN (10:22)
[2022-02-23] MEDS: LORazepam 0.5 MG tablet PO PRN ×2 (10:30→22:02)
[2022-02-23] MEDS: cefepime 1GM/NS ADD-VANTAGE 100 ML IV SCH (10:31)
--- NOTE | 2022-02-23 16:00 | NUR ---
Patient in room PCU 3009. I have received report from arjun ARAUJO and had the opportunity to ask questions and assume patient care.
[2022-02-23] MEDS: magnesium hydroxide 30ml (MOM) UD suspension PO PRN (17:19)
--- NOTE | 2022-02-23 18:26 | NUR ---
patient hair this afternoon felt" better" had small hard BM requested and given MOM. feroz present Report given to Lorie ARAUJO
[2022-02-23] MEDS: acetaminophen 325mg tablet PO PRN (20:41)
[2022-02-24 02:00] VITALS: BP 100/77
--- NOTE | 2022-02-24 02:00 | NUR ---
Patient in room PCU 3009. I have received report from Lorie and had the opportunity to ask questions and assume patient care. Pt assessed and no change to previous assessment.. Addendum: 02/24/22 at 0403 by Lewis Ferrell RN Amended: Links added.
--- NOTE | 2022-02-24 06:29 | NUR ---
Patient in room PCU 3009. I have received report from Jay ARAUJO and had the opportunity to ask questions and assume patient care. Patient resting in bed in no acute distress. Sitter at bedside.
--- NOTE | 2022-02-24 06:37 | NUR ---
Problems reprioritized. Patient report given, questions answered & plan of care reviewed with Laura. Addendum: 02/24/22 at 0637 by Lewis Ferrell RN Amended: Links added.
[2022-02-24 06:44] LABS: HEMOGLOBIN 11.1 g/dl (12.0-16.0); MEAN CORPUSCULAR HEMOGLOBIN 33.5 PG (27.0-31.0); MEAN CORPUSCULAR HGB CONC 32.9 g/dL (33.0-36.5); MEAN PLATELET VOLUME 8.4 FL (7.4-10.4)
[2022-02-24 06:48] LABS: BASOPHILS # (AUTO) 0.1 X10'3 (0-0.2); BASOPHILS % (AUTO) 1.4 % (0-1); EOSINOPHILS % (AUTO) 0.6 % (0-6); HEMATOCRIT 33.8 % (35.0-45.0); LYMPHOCYTES # (AUTO) 2.1 X10'3 (1.1-4.8); LYMPHOCYTES % (AUTO) 39.7 % (21-51); MEAN CORPUSCULAR VOLUME 101.8 FL (78-98); MONOCYTES # (AUTO) 0.6 X10'3 (0-0.9); MONOCYTES % (AUTO) 12.2 % (2-12); NEUTROPHILS # (AUTO) 2.4 X10'3 (1.8-7.7); NEUTROPHILS % (AUTO) 46.1 % (42-75); PLATELET COUNT 273 X10'3 (140-440); RED BLOOD COUNT 3.32 X10'6 (4.20-5.60); RED CELL DISTRIBUTION WIDTH 18.3 % (11.5-14.5); WHITE BLOOD COUNT 5.3 X10'3 (4.5-11.0)
[2022-02-24 07:00] VITALS: BP 105/84
[2022-02-24 07:10] LABS: ALANINE AMINOTRANSFERASE 220 U/L (12-78); ALBUMIN 2.5 G/DL (3.4-5.0); ALBUMIN/GLOBULIN RATIO 0.6 (1.1-1.5); ALKALINE PHOSPHATASE 165 IU/L (46-116); ANION GAP 6 (8-16); ASPARTATE AMINO TRANSFERASE 180 U/L (10-37); BILIRUBIN,TOTAL 1.3 MG/DL (0.1-1.0); BLOOD UREA NITROGEN 20 MG/DL (7-18); BUN/CREATININE RATIO 15.5 (6.6-38.0); CALCIUM 8.2 MG/DL (8.5-10.1); CHLORIDE 100 MMOL/L (99-107); CREATININE 1.29 MG/DL (0.40-0.90); GLUCOSE 105 MG/DL (70-104); MAGNESIUM 1.9 MG/DL (1.5-2.4); PHOSPHORUS 3.4 MG/DL (2.3-4.5); POTASSIUM 4.4 MMOL/L (3.5-5.1); SODIUM 131 MMOL/L (135-145); TOTAL CARBON DIOXIDE 25.3 MMOL/L (24-32); TOTAL PROTEIN 6.4 G/DL (6.4-8.2); eGFR 46 ML/MIN
[2022-02-24] MEDS: lactose-reduced food (Ensure Enlive) - 237ml bottle PO SCH ×2 (07:30→17:58)
[2022-02-24] MEDS: thiamine 100mg tablet PO SCH ×2 (09:19→20:59)
[2022-02-24] MEDS: gabapentin 100mg capsule PO SCH ×3 (09:20→20:59)
[2022-02-24] MEDS: folic acid 1mg tablet PO SCH (09:20)
[2022-02-24] MEDS: multivitamins, therapeutics tablet PO SCH (09:20)
[2022-02-24] MEDS: metoprolol succinate 25mg (24-HOUR) SR. Tablet PO SCH (09:20)
[2022-02-24] MEDS: naltrexone 50mg tablet PO SCH (09:21)
[2022-02-24] MEDS: furosemide 20 MG/2 ML vial IV SCH ×2 (09:21→19:36)
[2022-02-24] MEDS: heparin, porcine 5000 units/ml vial SQ SCH ×2 (09:21→20:59)
[2022-02-24] MEDS: lisinopril 10 MG tablet PO SCH (09:21)
--- NOTE | 2022-02-24 09:23 | NUR ---
morning meds given late due to primary RN assisting with cardioversion on another patient
[2022-02-24] MEDS: LORazepam 0.5 MG tablet PO PRN (10:55)
[2022-02-24] MEDS: magnesium hydroxide 30ml (MOM) UD suspension PO PRN (10:55)
[2022-02-24 11:00] VITALS: BP 110/82
[2022-02-24 15:00] VITALS: BP 105/80
--- NOTE | 2022-02-24 15:25 | NUR ---
patient refusing tele - manager telemetry notified
--- NOTE | 2022-02-24 16:15 | NUR ---
Page Accepted promotional table spacer Message: ChrisAzam Abreu. Pt c/o 5/10 back pain and is requesting muscle relaxer. Please advise. Laura @[phone] Custom Responses: promotional table spacer Transaction number: [id number]
--- NOTE | 2022-02-24 18:14 | NUR ---
Problems reprioritized. Patient report given, questions answered & plan of care reviewed with Alida RN. Patient is resting in room. Sitter is at bedside. Patient is in no acute distress.
[2022-02-24 18:40] VITALS: BP 94/67
[2022-02-24] MEDS: ondansetron/PF 4mg/2ml inj IV PRN (19:36)
--- NOTE | 2022-02-24 20:01 | NUR ---
Keyana Disla for meds
[2022-02-24] MEDS ORDERED: LORazepam 2 mg/ml vial IM ONE (20:15)
[2022-02-24] MEDS ORDERED: LORazepam 2 mg/ml vial IV ONE (21:25)
[2022-02-24 22:00] VITALS: BP 100/62
[2022-02-25 02:00] VITALS: BP 102/70
[2022-02-25] MEDS: LORazepam 0.5 MG tablet PO PRN ×2 (05:02→18:45)
[2022-02-25 07:00] VITALS: BP 104/84
[2022-02-25] MEDS: gabapentin 100mg capsule PO SCH ×3 (07:30→20:14)
[2022-02-25] MEDS: folic acid 1mg tablet PO SCH (07:30)
[2022-02-25] MEDS: thiamine 100mg tablet PO SCH ×2 (07:30→20:14)
[2022-02-25] MEDS: naltrexone 50mg tablet PO SCH (07:30)
[2022-02-25] MEDS: multivitamins, therapeutics tablet PO SCH (07:31)
[2022-02-25] MEDS: metoprolol succinate 25mg (24-HOUR) SR. Tablet PO SCH (07:31)
[2022-02-25] MEDS: lisinopril 10 MG tablet PO SCH (07:31)
[2022-02-25] MEDS: furosemide 20 MG/2 ML vial IV SCH ×2 (07:32→20:14)
[2022-02-25] MEDS: heparin, porcine 5000 units/ml vial SQ SCH ×2 (07:32→20:14)
[2022-02-25] MEDS: lactose-reduced food (Ensure Enlive) - 237ml bottle PO SCH ×2 (08:22→17:30)
[2022-02-25 11:00] VITALS: BP 106/79
[2022-02-25] MEDS: ondansetron/PF 4mg/2ml inj IV PRN (11:47)
[2022-02-25] MEDS: magnesium hydroxide 30ml (MOM) UD suspension PO PRN (13:13)
[2022-02-25 15:00] VITALS: BP 108/80
[2022-02-25 18:00] VITALS: BP 106/74
--- NOTE | 2022-02-25 18:17 | NUR ---
Patient in room PCU 3009. I have received report from ARABELLA ARAUJO and had the opportunity to ask questions and assume patient care.
--- NOTE | 2022-02-25 20:35 | NUR ---
PATIENT REFUSING TO WEAR LIFE VEST AND EDUCATED ON THE IMPORTANCE OF HAVING IT ON. NON COMPLIANT.
[2022-02-25] MEDS ORDERED: diphenhydrAMINE 25mg capsule PO PRN (20:55)
[2022-02-25 22:21] VITALS: BP 103/78
[2022-02-26 06:00] VITALS: BP 104/79
--- NOTE | 2022-02-26 06:30 | NUR ---
Problems reprioritized. Patient report given, questions answered & plan of care reviewed with JOSÉ ANTONIO ARAUJO.
--- NOTE | 2022-02-26 06:35 | NUR ---
Patient in room PCU 3009. I have received report from VAN Kilpatrick and had the opportunity to ask questions and assume patient care.
[2022-02-26] MEDS: lactose-reduced food (Ensure Enlive) - 237ml bottle PO SCH ×2 (07:30→17:40)
[2022-02-26] MEDS: multivitamins, therapeutics tablet PO SCH (08:10)
[2022-02-26] MEDS: gabapentin 100mg capsule PO SCH ×3 (08:11→20:23)
[2022-02-26] MEDS: thiamine 100mg tablet PO SCH ×2 (08:11→20:23)
[2022-02-26] MEDS: lisinopril 10 MG tablet PO SCH (08:11)
[2022-02-26] MEDS: heparin, porcine 5000 units/ml vial SQ SCH ×2 (08:11→20:23)
[2022-02-26] MEDS: metoprolol succinate 25mg (24-HOUR) SR. Tablet PO SCH (08:11)
[2022-02-26] MEDS: LORazepam 0.5 MG tablet PO PRN ×2 (08:11→20:31)
[2022-02-26] MEDS: folic acid 1mg tablet PO SCH (08:11)
[2022-02-26] MEDS: naltrexone 50mg tablet PO SCH (08:11)
[2022-02-26] MEDS: furosemide 20 MG/2 ML vial IV SCH ×2 (08:11→20:23)
--- NOTE | 2022-02-26 08:47 | NUR ---
Reassessment: Pt continues on Regular diet w/ similar PO intake, avg 48% x 9 meals. Pt also intermittently consumes ONS though not significant to meet needs. Communicated w/ RN and paged MD regarding recommendation for NG feeding for supplemental nutrition, though unsure if pt would be cooperative/accepting. Given inadequate PO intake since admission (14 days) and BLE/facial 2+ edema, pt meets minimum criteria for malnutrition, MD notified LBM 02/23 receiving PRN bowel care. Will continue to monitor. Recommendations: 1. Continue regular diet as tolerated 2. Ensure Enlive BIDBD; consider d/c as pt does not really drink them 3. Initiation of Nutrition Support given prolonged poor PO 4. Continue routine Thiamine, Folic acid, and MVI for EtOH hx with elevated MCV 5. Bowel care PRN 6. Weekly scaled weights Addendum: 02/26/22 at [address] Amended: Links added.
--- NOTE | 2022-02-26 09:48 | NUR ---
Zofran administered 02/25 at 1147 not reassessed by RN on that shift. This RN was not present for administration nor reassessment.
--- NOTE | 2022-02-26 10:00 | NUR ---
Pt continues to refuse to wear tele monitor and life vest. Dr Marcial notified.
[2022-02-26 11:00] VITALS: BP 114/87
[2022-02-26] MEDS ORDERED: FOLI1TAB27 PO (11:45)
[2022-02-26] MEDS ORDERED: psyllium seed packet PO (11:45)
[2022-02-26] MEDS ORDERED: GABA-530 PO (11:45)
[2022-02-26] MEDS ORDERED: POLY15DR31 EACHEYE (11:45)
[2022-02-26] MEDS ORDERED: MULT-25 PO (11:45)
[2022-02-26 15:00] VITALS: BP 92/66
[2022-02-26 18:00] VITALS: BP 111/89
--- NOTE | 2022-02-26 18:18 | NUR ---
Problems reprioritized. Patient report given, questions answered & plan of care reviewed with VAN Kilpatrick.
--- NOTE | 2022-02-26 18:21 | NUR ---
Patient in room PCU 3009. I have received report from JOSÉ ANTONIO ARAUJO and had the opportunity to ask questions and assume patient care.
[2022-02-26] MEDS: psyllium seed 3.4 gm packet PO SCH (20:24)
[2022-02-26 22:00] VITALS: BP 101/82
[2022-02-27 02:00] VITALS: BP 111/90
[2022-02-27 06:00] VITALS: BP 114/89
--- NOTE | 2022-02-27 06:16 | NUR ---
Problems reprioritized. Patient report given, questions answered & plan of care reviewed with JOSÉ ANTONIO ARAUJO.
--- NOTE | 2022-02-27 06:23 | NUR ---
Patient in room PCU 3009. I have received report from VAN Kilpatrick and had the opportunity to ask questions and assume patient care.
[2022-02-27] MEDS: lactose-reduced food (Ensure Enlive) - 237ml bottle PO SCH ×2 (07:30→17:43)
[2022-02-27] MEDS: folic acid 1mg tablet PO SCH (08:11)
[2022-02-27] MEDS: naltrexone 50mg tablet PO SCH (08:11)
[2022-02-27] MEDS: LORazepam 0.5 MG tablet PO PRN ×2 (08:11→21:16)
[2022-02-27] MEDS: gabapentin 100mg capsule PO SCH ×3 (08:11→21:00)
[2022-02-27] MEDS: multivitamins, therapeutics tablet PO SCH (08:11)
[2022-02-27] MEDS: thiamine 100mg tablet PO SCH ×2 (08:11→20:52)
[2022-02-27] MEDS: metoprolol succinate 25mg (24-HOUR) SR. Tablet PO SCH (08:12)
[2022-02-27] MEDS: lisinopril 10 MG tablet PO SCH (08:12)
[2022-02-27] MEDS: furosemide 20 MG/2 ML vial IV SCH ×2 (08:12→20:57)
[2022-02-27] MEDS: magnesium hydroxide 30ml (MOM) UD suspension PO PRN (08:25)
[2022-02-27] MEDS: heparin, porcine 5000 units/ml vial SQ SCH ×2 (08:29→20:57)
[2022-02-27 11:00] VITALS: BP 99/73
--- NOTE | 2022-02-27 13:50 | NUR ---
Pt states she is going home, all belongings packed and pt is dressed. This RN explained to pt that she is on 5150 hold and the police will be notified if she leaves the hospital. sales agent business services and Dr Marcial notified.
--- NOTE | 2022-02-27 14:19 | NUR ---
Pt states she changed her mind, states "I would rather deal with you guys than have the plug making operator called on me". Will notify geriatric social work professor and hospitalist.
[2022-02-27 15:00] VITALS: BP 103/76
[2022-02-27 18:00] VITALS: BP 114/82
--- NOTE | 2022-02-27 18:30 | NUR ---
Problems reprioritized. Patient report given, questions answered & plan of care reviewed with VAN Kilpatrick and terrance Esqueda RN.
--- NOTE | 2022-02-27 19:03 | NUR ---
Patient in room PCU 3009. I have received report from JOSÉ ANTONIO ARAUJO and had the opportunity to ask questions and assume patient care.
[2022-02-27] MEDS: psyllium seed 3.4 gm packet PO SCH (20:59)
[2022-02-27 22:00] VITALS: BP 110/81
[2022-02-28 02:43] VITALS: BP 99/72
[2022-02-28 06:00] VITALS: BP 119/94
--- NOTE | 2022-02-28 06:25 | NUR ---
Problems reprioritized. Patient report given, questions answered & plan of care reviewed with EVANS ARAUJO.
--- NOTE | 2022-02-28 06:41 | NUR ---
Problems reprioritized. Patient report given, questions answered & plan of care reviewed with Ly ARAUJO.
[2022-02-28] MEDS: lactose-reduced food (Ensure Enlive) - 237ml bottle PO SCH ×2 (07:30→17:30)
[2022-02-28] MEDS: naltrexone 50mg tablet PO SCH (08:00)
[2022-02-28] MEDS: heparin, porcine 5000 units/ml vial SQ SCH ×2 (08:00→19:37)
[2022-02-28] MEDS: gabapentin 100mg capsule PO SCH ×2 (09:44→13:00)
[2022-02-28] MEDS: furosemide 20 MG/2 ML vial IV SCH ×2 (09:44→19:36)
[2022-02-28] MEDS: metoprolol succinate 25mg (24-HOUR) SR. Tablet PO SCH (09:45)
[2022-02-28] MEDS: multivitamins, therapeutics tablet PO SCH (09:45)
[2022-02-28] MEDS: folic acid 1mg tablet PO SCH (09:45)
[2022-02-28] MEDS: thiamine 100mg tablet PO SCH ×2 (09:45→19:37)
[2022-02-28] MEDS: LORazepam 0.5 MG tablet PO PRN ×2 (09:45→19:37)
[2022-02-28] MEDS: lisinopril 10 MG tablet PO SCH (09:46)
[2022-02-28 11:00] VITALS: BP 121/86
[2022-02-28 18:00] VITALS: BP 104/71
--- NOTE | 2022-02-28 18:00 | NUR ---
Patient in room PCU 3009. I have received report from VAN Modi and had the opportunity to ask questions and assume patient care.
--- NOTE | 2022-02-28 21:16 | NUR ---
Upon arrival to pt's room she became agitated and screaming wanting to go home. Pt was told she was going to be discharged today and was packing her belongs ready to leave. Orders was reviewed and evaluated with the charge nurse Jasmyne. There were an active order to transfer to the mental health unit in the facility but no discharge orders outside. This was explained to the pt and the risk of leaving with out medical advice. Pt became aggravated and began to yell. Security was called to the unit and spoke to the pt. Dr Mahajan was notified of pt's condition, he came to the unit and evaluated her. Pt's mother was called and informed of the situation. Pt was aware of the risks and still wanted to leave. An AMA form was filled and presented to Zaina Tellez and the pt. The Pt refused to sign the form and left the unit with Security. supervisor electronic testing and family was notified of pt's departure from the facility.
== END 2022-02-28 20:45 | disposition left against medical advice (07) | DRG 194 ==
LOC: ER 06:39 → ED HOLD 11:27 → PCU 3S 02-13 15:44
PROVIDERS: ADMIT Internal Medicine; ATTEND Internal Medicine
DX: I13.0 Hypertensive heart and chronic kidney disease with heart failure and stage 1 through stage 4 chronic kidney disease, or unspecified chronic kidney disease (principal); N17.0 Acute kidney failure with tubular necrosis; F10.231 Alcohol dependence with withdrawal delirium; E86.0 Dehydration; D69.6 Thrombocytopenia, unspecified; E87.1 Hypo-osmolality and hyponatremia; R45.851 Suicidal ideations; N39.0 Urinary tract infection, site not specified; I50.23 Acute on chronic systolic (congestive) heart failure; I42.0 Dilated cardiomyopathy; I42.7 Cardiomyopathy due to drug and external agent; B96.20 Unspecified Escherichia coli [E. coli] as the cause of diseases classified elsewhere; K74.60 Unspecified cirrhosis of liver; Z53.29 Procedure and treatment not carried out because of patient's decision for other reasons; Z16.24 Resistance to multiple antibiotics; N18.9 Chronic kidney disease, unspecified; F15.10 Other stimulant abuse, uncomplicated; F17.200 Nicotine dependence, unspecified, uncomplicated; R74.01 Elevation of levels of liver transaminase levels; F32.A Depression, unspecified; I07.1 Rheumatic tricuspid insufficiency; Z59.00 Homelessness unspecified; Z91.19 Patient's noncompliance with other medical treatment and regimen; Z79.899 Other long term (current) drug therapy; Z71.51 Drug abuse counseling and surveillance of drug abuser; Z71.41 Alcohol abuse counseling and surveillance of alcoholic
CPT/HCPCS: 36410; 36415; 71045; 76937; 80048; 80053; 80074; 80076; 80305; 80346; 81001; 83605; 83735; 83880; 84100; 84145; 84703; 85007; 85025; 85610; 87040; 87077; 87081; 87088; 87186; 93306; 96365; 96375; 99291; C1751; G0378; J0692; J0696; J1644; J1940; J2060; J2405; J2765; J3411; J3490; J7030; J7120; Q0163

== ENCOUNTER 2023-03-31 23:57 | Emergency (ER) | payer MEDICAID ==
[~2023-03-31] VITALS: Ht 157.5 cm; Wt 65.9 kg
[~2023-03-31 23:57] MED LIST changes: -CARV-49 PO; +FOLI1TAB27 PO; +FURO-149 PO; +GABA-530 PO; -LORA-269 PO; +METO-384 PO; +MULT-25 PO; +POLY15DR31 EACHEYE; +SPIR25TA5 PO; -folic acid tablet PO; +psyllium seed packet PO
[2023-04-01 00:03] VITALS: BP 105/74
[2023-04-01 00:26] LABS: BASOPHILS % (AUTO) 0.7 % (0-1); EOSINOPHILS % (AUTO) 0.7 % (0-6); HEMATOCRIT 38.8 % (35.0-45.0); HEMOGLOBIN 13.1 g/dl (12.0-16.0); LYMPHOCYTES # (AUTO) 2.2 X10'3 (1.1-4.8); LYMPHOCYTES % (AUTO) 63.4 % (21-51); MEAN CORPUSCULAR HEMOGLOBIN 30.3 PG (27.0-31.0); MEAN CORPUSCULAR HGB CONC 33.7 g/dL (33.0-36.5); MEAN CORPUSCULAR VOLUME 89.9 FL (78-98); MEAN PLATELET VOLUME 7.5 FL (7.4-10.4); MONOCYTES # (AUTO) 0.6 X10'3 (0-0.9); MONOCYTES % (AUTO) 16.4 % (2-12); NEUTROPHILS # (AUTO) 0.6 X10'3 (1.8-7.7); NEUTROPHILS % (AUTO) 18.8 % (42-75); PLATELET COUNT 249 X10'3 (140-440); RED BLOOD COUNT 4.31 X10'6 (4.20-5.60); RED CELL DISTRIBUTION WIDTH 17.5 % (11.5-14.5); WHITE BLOOD COUNT 3.4 X10'3 (4.5-11.0)
[2023-04-01 00:43] LABS: ALANINE AMINOTRANSFERASE 34 U/L (12-78); ALBUMIN 4.2 G/DL (3.4-5.0); ALKALINE PHOSPHATASE 108 IU/L (46-116); ANION GAP 8 (8-16); ASPARTATE AMINO TRANSFERASE 26 U/L (10-37); BILIRUBIN,TOTAL 0.5 MG/DL (0.1-1.0); BLOOD UREA NITROGEN 22 MG/DL (7-18); BUN/CREATININE RATIO 19.1 (10.0-20.0); CHLORIDE 102 MMOL/L (99-107); CREATININE 1.15 MG/DL (0.40-0.90); GLUCOSE 97 MG/DL (70-104); POTASSIUM 3.6 MMOL/L (3.5-5.1); SODIUM 138 MMOL/L (135-145); TOTAL CARBON DIOXIDE 27.9 MMOL/L (24-32); TOTAL PROTEIN 8.3 G/DL (6.4-8.2); eGFR 52 ML/MIN
[2023-04-01 02:40] LABS: TOTAL CELLS COUNTED 100
[2023-04-01 02:41] LABS: ANISOCYTOSIS 1+; PLATELET ESTIMATE NORMAL
[2023-04-01 02:42] LABS: ELLIPTOCYTES FEW
== END 2023-04-01 02:49 | disposition left against medical advice (07) ==
LOC: ER 23:58
DX: R07.9 Chest pain, unspecified (principal); I11.0 Hypertensive heart disease with heart failure; F15.10 Other stimulant abuse, uncomplicated; Z87.81 Personal history of (healed) traumatic fracture; Z79.899 Other long term (current) drug therapy
CPT/HCPCS: 36415; 71045; 80053; 83880; 84484; 85007; 85025; 93005; 99281

== ENCOUNTER 2023-06-16 08:30 | Inpatient (IN) | payer MEDICAID ==
[~2023-06-16] VITALS: Ht 167.6 cm; Wt 72.0 kg
--- NOTE | 2023-06-16 08:36 | NUR ---
POISON CONTROL CONTACTED. UNKNOWN AMOUNT OF ATIVAN, UNKNOWN INGESTION TIME. PT DID AGREE WHEN ASKED IF IT WAS TWO HOURS AGO. START WITH 4-6 HOURS OF OBSERVATION PER POISON CONTROL. REVERSAL AGENT NOT REC. CBC CMP, ACETAMINOPHEN LEVELS, UTOX, ETHANOL.
[2023-06-16] MEDS ORDERED: magnesium 2GM in 50ml NS 50 ML IV ONE (08:40)
[2023-06-16 09:21] LABS: BASOPHILS % (AUTO) 0.4 % (0-1); EOSINOPHILS % (AUTO) 0.2 % (0-6); HEMATOCRIT 40.5 % (35.0-45.0); HEMOGLOBIN 13.3 g/dl (12.0-16.0); LYMPHOCYTES % (AUTO) 17.4 % (21-51); MEAN CORPUSCULAR HEMOGLOBIN 30.5 PG (27.0-31.0); MEAN CORPUSCULAR HGB CONC 32.8 g/dL (33.0-36.5); MEAN CORPUSCULAR VOLUME 93.2 FL (78-98); MEAN PLATELET VOLUME 7.3 FL (7.4-10.4); MONOCYTES # (AUTO) 0.6 X10'3 (0-0.9); MONOCYTES % (AUTO) 5.1 % (2-12); NEUTROPHILS # (AUTO) 8.8 X10'3 (1.8-7.7); NEUTROPHILS % (AUTO) 76.9 % (42-75); PLATELET COUNT 279 X10'3 (140-440); RED BLOOD COUNT 4.34 X10'6 (4.20-5.60); RED CELL DISTRIBUTION WIDTH 17.1 % (11.5-14.5); WHITE BLOOD COUNT 11.5 X10'3 (4.5-11.0)
[2023-06-16 09:44] LABS: ALANINE AMINOTRANSFERASE 26 U/L (12-78); ALBUMIN 3.9 G/DL (3.4-5.0); ALKALINE PHOSPHATASE 107 IU/L (46-116); ANION GAP 20 (8-16); ASPARTATE AMINO TRANSFERASE 35 U/L (10-37); BILIRUBIN,TOTAL 0.3 MG/DL (0.1-1.0); BLOOD UREA NITROGEN 12 MG/DL (7-18); BUN/CREATININE RATIO 16.2 (10.0-20.0); CALCIUM 8.4 MG/DL (8.5-10.1); CHLORIDE 106 MMOL/L (99-107); CREATININE 0.74 MG/DL (0.40-0.90); GLUCOSE 82 MG/DL (70-104); MAGNESIUM 1.6 MG/DL (1.5-2.4); POTASSIUM 3.2 MMOL/L (3.5-5.1); SALICYLATE 1.9 MG/DL (4.0-20.0); SODIUM 146 MMOL/L (135-145); TOTAL CARBON DIOXIDE 20.1 MMOL/L (24-32); eCRCL 95 ML/MIN; eGFR 87 ML/MIN
[2023-06-16] MEDS ORDERED: normal saline 1000ml 1,000 ML IV ONE ×3 (09:45→11:15)
[2023-06-16 09:48] LABS: BILIRUBIN,URINE NEGATIVE (Neg); CLARITY,URINE CLOUDY (Clear); COLOR,URINE YELLOW (Yellow); GLUCOSE, URINE NEGATIVE (Neg); KETONES,URINE NEGATIVE (Neg); LEUKOCYTE ESTERASE ,URINE MODERATE (Neg); NITRITES, URINE NEGATIVE (Neg); OCCULT BLOOD,URINE SMALL (Neg); PROTEIN,URINE TRACE mg/dl (Neg); UROBILINOGEN,URINE 0.2 E.U/dL (0.2-1.0)
[2023-06-16 09:53] LABS: URINE HCG NEGATIVE (NEG)
[2023-06-16 09:54] LABS: ETHANOL 391 MG/DL (<10)
[2023-06-16 09:55] LABS: UA COLLECTION TYPE STRAIGHT CATH
[2023-06-16 09:55] LABS: ACETAMINOPHEN < 2.0 UG/ML (10-30)
[2023-06-16] MEDS ORDERED: potassium Cl 20mEq/100mL bag 100 ML IV SCH (09:55)
[2023-06-16 09:57] LABS: BACTERIA,URINE 4+ /HPF (Neg); MUCUS STRANDS FEW /LPF (Neg); SQUAMOUS EPITHELIAL CELL,UR FEW /LPF (FEW); WBC CLUMPS,URINE MODERATE /HPF (NEGATIVE); WBC,URINE 50-100 /HPF (0-4)
[2023-06-16 10:07] LABS: URINE AMPHETAMINE SCREEN POSITIVE (Neg); URINE BARBITUATE SCREEN NEGATIVE (Neg); URINE BENZODIAZEPINES SCREEN NEGATIVE (Neg); URINE CANNABINOID SCREEN NEGATIVE (Neg); URINE COCAINE SCREEN NEGATIVE (Neg); URINE METHADONE SCREEN NEGATIVE (Neg); URINE OPIATE SCREEN NEGATIVE (Neg); URINE PHENCYCLIDINE SCREEN NEGATIVE (Neg)
[2023-06-16] MEDS ORDERED: CefTRIAXone/D5W-Rocephin 1gm 50 ML IV ONE (10:25)
--- NOTE | 2023-06-16 11:33 | NUR ---
Midline placed per PICC RN in Right UE- line is very positional for draws. NS bolus infusing at this time. MD aware of low SBPs (80's-90's/60's).
--- NOTE | 2023-06-16 11:36 | NUR ---
Pt stating she is not wishing to be or having thoughts of suicide. Pt did nod head to previous suicide attempts, but would not specify when. PT stating, "I just want to go home. Don't put me on a hold".
[2023-06-16] MEDS ORDERED: potassium Cl 40MEQ/270ML bag 250 ML IV PRN (12:25)
[2023-06-16] MEDS ORDERED: potassium Cl 40MEQ/1/2NS 520ml 520 ML IV PRN (12:25)
[2023-06-16] MEDS ORDERED: haloperidol 5mg tablet PO PRN (12:25)
[2023-06-16] MEDS ORDERED: potassium Cl 20mEq/100mL bag 100 ML IV PRN (12:25)
[2023-06-16] MEDS ORDERED: haloperidol lactate 5mg/ml inj IM PRN (12:25)
[2023-06-16] MEDS ORDERED: acetaminophen 325mg tablet PO PRN (12:25)
[2023-06-16] MEDS ORDERED: LORazepam 1 MG tablet PO PRN (12:25)
[2023-06-16] MEDS ORDERED: potassium CL 10mEq/100ml bag 100 ML IV PRN (12:25)
[2023-06-16] MEDS ORDERED: magnesium 2GM in 50ml NS 50 ML IV PRN (12:25)
[2023-06-16] MEDS ORDERED: magnesium 4gm in 100ml NS 100 ML IV PRN (12:25)
[2023-06-16] MEDS ORDERED: ondansetron/PF 4mg/2ml inj IV PRN (12:25)
[2023-06-16] MEDS ORDERED: PERFLUTREN PROTEIN-A MICROSPHR (Optison) 0.22 MG/ML 3ML VIAL IV ONE (12:25)
[2023-06-16] MEDS ORDERED: mag hydrox/Alum hydrox/simeth 30ml oral suspension PO PRN (12:25)
[2023-06-16] MEDS ORDERED: HYDROmorphone inj. 0.5 MG/0.5 ML DISP.SYRIN IV PRN (12:25)
[2023-06-16] MEDS: normal saline 1000ml 1,000 ML IV SCH ×3 (12:25→22:11)
[2023-06-16] MEDS ORDERED: magnesium hydroxide 30ml (MOM) UD suspension PO PRN (12:25)
[2023-06-16] MEDS ORDERED: thiamine 100mg/ml 2ml inj. IV ONE (12:25)
[2023-06-16] MEDS ORDERED: ATI1T PO (12:50)
[2023-06-16] MEDS ORDERED: CARV3.122 PO (12:50)
[2023-06-16] MEDS ORDERED: TRAZ-251 PO (12:50)
[2023-06-16] MEDS ORDERED: ZOLP10TA PO (12:50)
[2023-06-16] MEDS ORDERED: SACU1TAB PO (12:50)
[2023-06-16] MEDS ORDERED: NITR0.4T51 SL (12:50)
[2023-06-16] MEDS ORDERED: ESOM40CA54 PO (12:50)
[2023-06-16] MEDS ORDERED: ONDA-103 PO (12:50)
[2023-06-16] MEDS ORDERED: LEVA15HF6 PO (12:50)
[2023-06-16] MEDS ORDERED: FURO40TA4 PO (12:50)
--- NOTE | 2023-06-16 13:17 | NUR ---
Patient ripped telemetry and VS equipment off stating, "My arm is killing me. Just let me go home". paged regarding IV potassium order and negative benzo tox screen for plan of care. PT still on 1798 at this time.
[2023-06-16] MEDS ORDERED: nitroGLYCERIN 0.4mg SUBLingual tab SL PRN (13:40)
[2023-06-16] MEDS ORDERED: traZODone 50mg tablet PO PRN (13:40)
[2023-06-16] MEDS ORDERED: albuterol 2.5 MG/3 ML nebule NEB PRN (13:50)
--- NOTE | 2023-06-16 13:50 | NUR ---
OCCUPATIONAL HEALTH NURSE SUPERVISOR CALLED THIS RN TO BEDSIDE STATING PT WAS BLEEDING AFTER REMOVING HER OWN EXTENDED IV. BLEEDING WAS STOPPED WHEN THIS RN ASSESSED PT. PT STATED HER ARM HURT SO SHE REMOVED HER IV. NO S/SX OF INFILTRATION OBSERVED BY THIS RN. PT DID INTENTIONALLY REMOVE HER IV WHICH HAD NEEDED TO BE PLACED BY A PICC NURSE
--- NOTE | 2023-06-16 13:54 | NUR ---
Received order for consult. Went to meet with patient and she was in the middle of procedure. I will try again.
--- NOTE | 2023-06-16 14:00 | NUR ---
Patient angry and agitated. Pt refusing vitals, medications, etc stating, "Just let me go home". tattoo designer and MD Phillips aware of situation.
--- NOTE | 2023-06-16 14:23 | NUR ---
PT C/O SWOLLEN/PAINFUL ARM. WARM BLANKETS PROVIDED. STATED K+ COULD BE GIVEN PO IF PT IS WILLING TO TAKE. POISON CONTROL CALLED AND GOT UPDATE REGARDING PT STATUS. PC STATED THEY WOULD BE CLOSING OUT CASE AT THIS TIME AND ENCOURAGED PLAYGROUND MONITOR TO LET PT "SLEEP IT OFF". VSS.
--- NOTE | 2023-06-16 15:39 | NUR ---
MD SILVA PAGED REGARDING PATIENTS STATUS. NOTIFIED THAT PT RIPPOUT BOTH IV AND MIDLINE AND THAT OTHER VASCULAR ACCESS IS NOT A POSSIBLITY AT THIS TIME. MD AWARE THAT PATIENT HAS OUTSTANDING SCHEDULED IV MEDS AND THESE WILL NOT BE ADMINISTERED GIVEN LACK OF ACCESS. PATIENT HAS BEEN REFUSING VITALS AND IVS FOR LAST 4 HOURS. AWAITING TRANSFER UPSTAIRS PER [facility] TO FINISH 1798. SLURRY TANK TENDER AND MAITRE D AWARE. ALSO NOTIFIED THAT PRN ATIVAN IS eMAR AND HAS POSSIBILITY OF BEING GIVEN. STATED HE WOULD LIKE TO KEEP THIS AVAILABLE PRN GIVEN PT'S ETOH BACKGROUND AND DESPITE OVERDOSE. CHARGE NOTIFIED.
--- NOTE | 2023-06-16 16:05 | NUR ---
PATIENT SLEEPING QUIETLY IN BED AT THIS TIME. GETTER OPERATOR CONCERNED REGARDING PATIENT RATIOS THIS TOUR - FEELING UNABLE TO PERFORM ALL DUTIES WELL GIVEN STAFFING. BUSINESS SERVICES MANAGER ADY, AND NURSING LOCKSTITCH LINING SETTER AWARE. GETTER OPERATOR CONTINUING CARE DESPITE SITUATION.
--- NOTE | 2023-06-16 17:00 | NUR ---
Md Phillips paged regarding lactic acid of 5.0. stated pt need IV access. Situation explained to pt, who stated she would be willing to have central line placed. Pt warned she must not D/C this. Alan aware PICC nurse not here at this time. Stated to consult ER MD on central line placement.
[2023-06-16 17:08] LABS: CHOL/HDL RATIO 2.8 (0.00-4.99); CHOLESTEROL 194 MG/DL (0-200); HDL CHOLESTEROL 70 MG/DL (35-60); LDL CHOLESTEROL 101 MG/DL (50-100); PHOSPHORUS 3.7 MG/DL (2.3-4.5); THYROID STIMULATING HORMONE 0.67 ulU/ml (0.34-4.50); TRIGLYCERIDES 67 MG/DL (20-135)
--- NOTE | 2023-06-16 18:15 | NUR ---
Left IJ placed per MD at bedside. Report called to Em on PCU.
[2023-06-16 19:00] VITALS: BP 102/62; PULSE 100; RESP 22; TEMP 97.8; O2SAT 97
--- NOTE | 2023-06-16 19:00 | NUR ---
pt arrived on unit via gurney accompanied by ER personnel. Pt is A+Ox4, able to make needs known. Pt has a sitter in the room.
[2023-06-16] MEDS ORDERED: normal saline 1000ml 1,000 ML IVB ONE (19:05)
[2023-06-16 20:15] VITALS: PULSE 107; RESP 18; O2SAT 99
[2023-06-16 22:00] VITALS: BP 101/57; PULSE 101; RESP 21; TEMP 97.6; O2SAT 97
[2023-06-16] MEDS: docusate sod 100mg capsule PO SCH (22:02)
[2023-06-16] MEDS: carVEDilol 3.125mg tablet PO SCH (22:02)
[2023-06-16] MEDS: heparin, porcine 5000 units/ml vial SQ SCH (22:04)
[2023-06-16] MEDS: VANCOmycin 1250MG/NS 250ml Bag 250 ML IV SCH (22:11)
[2023-06-16] MEDS: LORazepam 2 mg/ml vial IV PRN (22:12)
[2023-06-16] MEDS: sacubitril/valsartan 24mg-26mg tablet PO SCH (23:30)
[2023-06-17] VITALS (8 sets, daily range): BP systolic 90–110; BP diastolic 57–71; PULSE 86–100; RESP 10–19; TEMP 97.4–98.5; O2SAT 94–98
--- NOTE | 2023-06-17 06:41 | NUR ---
Problems reprioritized. Patient report given, questions answered & plan of care reviewed with Sweetie ARAUJO. Pt stable at shift change.
--- NOTE | 2023-06-17 06:59 | NUR ---
Patient in room PCU 3011. I have received report from Ambreen SALCEDO and had the opportunity to ask questions and assume patient care. Sitter at bedside patient sitting up in bed drinking coffee.
[2023-06-17 07:05] LABS: BASOPHILS % (AUTO) 0.5 % (0-1); EOSINOPHILS % (AUTO) 0.9 % (0-6); HEMATOCRIT 32.5 % (35.0-45.0); HEMOGLOBIN 10.8 g/dl (12.0-16.0); LYMPHOCYTES # (AUTO) 1.2 X10'3 (1.1-4.8); LYMPHOCYTES % (AUTO) 24.1 % (21-51); MEAN CORPUSCULAR HEMOGLOBIN 30.6 PG (27.0-31.0); MEAN CORPUSCULAR HGB CONC 33.4 g/dL (33.0-36.5); MEAN CORPUSCULAR VOLUME 91.5 FL (78-98); MEAN PLATELET VOLUME 7.8 FL (7.4-10.4); MONOCYTES # (AUTO) 0.5 X10'3 (0-0.9); MONOCYTES % (AUTO) 10.3 % (2-12); NEUTROPHILS # (AUTO) 3.2 X10'3 (1.8-7.7); NEUTROPHILS % (AUTO) 64.2 % (42-75); PLATELET COUNT 208 X10'3 (140-440); RED BLOOD COUNT 3.55 X10'6 (4.20-5.60); RED CELL DISTRIBUTION WIDTH 16.6 % (11.5-14.5)
[2023-06-17] MEDS: normal saline 1000ml 1,000 ML IV SCH ×3 (07:07→16:55)
[2023-06-17 07:37] LABS: ALANINE AMINOTRANSFERASE 21 U/L (12-78); ALBUMIN 2.9 G/DL (3.4-5.0); ALBUMIN/GLOBULIN RATIO 0.9 (1.1-1.5); ALKALINE PHOSPHATASE 88 IU/L (46-116); ANION GAP 10 (8-16); ASPARTATE AMINO TRANSFERASE 26 U/L (10-37); BILIRUBIN,TOTAL 1.6 MG/DL (0.1-1.0); BLOOD UREA NITROGEN 16 MG/DL (7-18); BUN/CREATININE RATIO 21.3 (10.0-20.0); CALCIUM 7.8 MG/DL (8.5-10.1); CHLORIDE 103 MMOL/L (99-107); CREATININE 0.75 MG/DL (0.40-0.90); GLUCOSE 88 MG/DL (70-104); POTASSIUM 3.7 MMOL/L (3.5-5.1); SODIUM 138 MMOL/L (135-145); TOTAL PROTEIN 6.1 G/DL (6.4-8.2); eCRCL 93 ML/MIN; eGFR 86 ML/MIN
[2023-06-17] MEDS: spironolactone 25 MG tablet PO SCH (08:00)
[2023-06-17] MEDS: sacubitril/valsartan 24mg-26mg tablet PO SCH ×2 (08:00→20:04)
[2023-06-17] MEDS: carVEDilol 3.125mg tablet PO SCH ×2 (08:00→20:04)
[2023-06-17] MEDS: pantoprazole 40mg Tablet.DR PO SCH (09:49)
[2023-06-17] MEDS: docusate sod 100mg capsule PO SCH ×2 (09:49→20:03)
[2023-06-17] MEDS: multivitamins, therapeutics tablet PO SCH (09:50)
[2023-06-17] MEDS: VANCOmycin 1250MG/NS 250ml Bag 250 ML IV SCH ×2 (09:51→21:59)
[2023-06-17] MEDS: heparin, porcine 5000 units/ml vial SQ SCH ×2 (09:51→20:05)
[2023-06-17] MEDS: CefTRIAXone/D5W-Rocephin 1gm 50 ML IV SCH (09:52)
[2023-06-17] MEDS: LORazepam 2 mg/ml vial IV PRN ×2 (12:22→20:04)
--- NOTE | 2023-06-17 16:54 | NUR ---
PAGER ID: [phone] MESSAGE: Sweetie PCU [id number] Re: [id number] Brady Patient voided 250ml's plus one void. Bladder scan only showed 12ml's Do you want IV fluids restarted? Addendum: 06/17/23 at 1654 by Sweetie Shah RN Dr Mabry called back, received orders to run Kivun Hadash @100
--- NOTE | 2023-06-17 18:38 | NUR ---
Problems reprioritized. Patient report given, questions answered & plan of care reviewed with feroz Mccracken RN at bedside.
[2023-06-18] VITALS (7 sets, daily range): BP systolic 101–125; BP diastolic 62–84; PULSE 83–102; RESP 13–20; TEMP 97.4–97.9; O2SAT 95–99
[2023-06-18] MEDS: normal saline 1000ml 1,000 ML IV SCH ×2 (03:27→12:55)
[2023-06-18 05:54] LABS: HEMOGLOBIN 10.2 g/dl (12.0-16.0); MEAN CORPUSCULAR HEMOGLOBIN 31.1 PG (27.0-31.0); RED BLOOD COUNT 3.29 X10'6 (4.20-5.60)
[2023-06-18 05:56] LABS: BASOPHILS % (AUTO) 1.1 % (0-1); EOSINOPHILS # (AUTO) 0.1 X10'3 (0-0.9); EOSINOPHILS % (AUTO) 2.3 % (0-6); HEMATOCRIT 30.4 % (35.0-45.0); LYMPHOCYTES # (AUTO) 1.4 X10'3 (1.1-4.8); LYMPHOCYTES % (AUTO) 35.4 % (21-51); MEAN CORPUSCULAR HGB CONC 33.7 g/dL (33.0-36.5); MEAN CORPUSCULAR VOLUME 92.5 FL (78-98); MEAN PLATELET VOLUME 8.2 FL (7.4-10.4); MONOCYTES # (AUTO) 0.5 X10'3 (0-0.9); MONOCYTES % (AUTO) 11.9 % (2-12); NEUTROPHILS # (AUTO) 1.9 X10'3 (1.8-7.7); NEUTROPHILS % (AUTO) 49.3 % (42-75); PLATELET COUNT 177 X10'3 (140-440); RED CELL DISTRIBUTION WIDTH 16.2 % (11.5-14.5); WHITE BLOOD COUNT 3.9 X10'3 (4.5-11.0)
[2023-06-18 06:02] LABS: ALANINE AMINOTRANSFERASE 20 U/L (12-78); ALBUMIN 2.7 G/DL (3.4-5.0); ALBUMIN/GLOBULIN RATIO 0.9 (1.1-1.5); ALKALINE PHOSPHATASE 84 IU/L (46-116); ANION GAP 10 (8-16); ASPARTATE AMINO TRANSFERASE 22 U/L (10-37); BILIRUBIN,TOTAL 0.5 MG/DL (0.1-1.0); BLOOD UREA NITROGEN 14 MG/DL (7-18); CALCIUM 8.1 MG/DL (8.5-10.1); CHLORIDE 103 MMOL/L (99-107); GLUCOSE 124 MG/DL (70-104); POTASSIUM 3.2 MMOL/L (3.5-5.1); SODIUM 139 MMOL/L (135-145); TOTAL CARBON DIOXIDE 26.3 MMOL/L (24-32); TOTAL PROTEIN 5.8 G/DL (6.4-8.2); eCRCL 70 ML/MIN; eGFR 61 ML/MIN
--- NOTE | 2023-06-18 06:30 | NUR ---
Patient in room PCU 3011. I have received report from VAN Mccracken and had the opportunity to ask questions and assume patient care.
--- NOTE | 2023-06-18 06:49 | NUR ---
Problems reprioritized. Patient report given, questions answered & plan of care reviewed with Dorothea RN.
[2023-06-18] MEDS: sacubitril/valsartan 24mg-26mg tablet PO SCH (08:00)
[2023-06-18] MEDS: spironolactone 25 MG tablet PO SCH (08:00)
[2023-06-18] MEDS: carVEDilol 3.125mg tablet PO SCH (08:00)
[2023-06-18] MEDS ORDERED: VANCOMYCIN LEVEL IV ONE (09:30)
[2023-06-18] MEDS: CefTRIAXone/D5W-Rocephin 1gm 50 ML IV SCH (09:53)
[2023-06-18] MEDS: multivitamins, therapeutics tablet PO SCH (09:54)
[2023-06-18] MEDS: heparin, porcine 5000 units/ml vial SQ SCH (09:54)
[2023-06-18] MEDS: docusate sod 100mg capsule PO SCH (09:54)
[2023-06-18] MEDS: potassium Cl 20 mEq SR tablet PO PRN ×2 (09:54→14:17)
[2023-06-18] MEDS: pantoprazole 40mg Tablet.DR PO SCH (09:59)
[2023-06-18 10:18] LABS: MAGNESIUM 1.3 MG/DL (1.5-2.4)
[2023-06-18] MEDS ORDERED: fluticasone nasal spray 16GM bottle NS SCH (10:35)
[2023-06-18] MEDS ORDERED: magnesium Cl slow-release 64mg tablet PO PRN (10:35)
[2023-06-18] MEDS: VANCOmycin 1250MG/NS 250ml Bag 250 ML IV SCH (11:55)
[2023-06-18] MEDS ORDERED: NALT50TA PO (17:10)
[2023-06-18] MEDS ORDERED: POTA-206 PO (17:17)
--- NOTE | 2023-06-18 18:50 | NUR ---
Patient in room PCU 3011. I have received report from DENISSE Johnson & VAN Medley and had the opportunity to ask questions and assume patient care.
[2023-06-18] MEDS ORDERED: VANCOMYCIN 1,500MG in normal saline IV soln 300 ML IV SCH (23:00)
[2023-06-20] MEDS ORDERED: VANCOMYCIN LEVEL IV ONE (10:30)
[2023-06-21] MEDS ORDERED: folic acid 1mg tablet PO SCH (08:00)
[2023-06-21] MEDS ORDERED: thiamine 100mg tablet PO SCH (08:00)
== END 2023-06-18 20:30 | disposition home or self-care (01) | DRG 817 ==
LOC: ER 08:30 → ED HOLD 12:34 → PCU 3S 19:00
PROVIDERS: ADMIT Family Medicine; ATTEND Family Medicine
PROC: 05H933Z Insertion of Infusion Device into Right Brachial Vein, Percutaneous Approach (ICD-10-PCS; 2023-06-16)
PROC: B54MZZA Ultrasonography of Right Upper Extremity Veins, Guidance (ICD-10-PCS; 2023-06-16)
PROC: 05HC33Z Insertion of Infusion Device into Left Basilic Vein, Percutaneous Approach (ICD-10-PCS; principal; 2023-06-17)
PROC: B54NZZA Ultrasonography of Left Upper Extremity Veins, Guidance (ICD-10-PCS; 2023-06-17)
DX: T43.652A Poisoning by methamphetamines intentional self-harm, initial encounter (principal); G92.8 Other toxic encephalopathy; E87.0 Hyperosmolality and hypernatremia; G31.2 Degeneration of nervous system due to alcohol; E87.6 Hypokalemia; I42.9 Cardiomyopathy, unspecified; I50.9 Heart failure, unspecified; Z20.822 Contact with and (suspected) exposure to COVID-19; I11.0 Hypertensive heart disease with heart failure; E83.42 Hypomagnesemia; R45.851 Suicidal ideations; R94.31 Abnormal electrocardiogram [ECG] [EKG]; F10.229 Alcohol dependence with intoxication, unspecified; Y90.8 Blood alcohol level of 240 mg/100 ml or more; F15.10 Other stimulant abuse, uncomplicated; Z59.00 Homelessness unspecified; Y92.89 Other specified places as the place of occurrence of the external cause; Z79.899 Other long term (current) drug therapy; Z87.440 Personal history of urinary (tract) infections; Z86.14 Personal history of Methicillin resistant Staphylococcus aureus infection
CPT/HCPCS: 36410; 36415; 76937; 80053; 80061; 80202; 80305; 80320; 80329; 81001; 81025; 82140; 82948; 83605; 83735; 84100; 84145; 84443; 85025; 87040; 87081; 87811; 93005; 93306; 94760; 99285; C1751; C1758; G0378; J0696; J1644; J2060; J3370; J3475; J3480; J7030

== ENCOUNTER 2023-08-02 09:40 | Emergency (ER) | payer MEDICAID ==
[~2023-08-02 09:40] MED LIST changes: +ATI1T PO; +CARV3.122 PO; +ESOM40CA54 PO; -FOLI1TAB27 PO; -FURO-149 PO; +FURO40TA4 PO; -GABA-530 PO; +LEVA15HF6 PO; -LISI5TAB22 PO; -METO-384 PO; -MULT-25 PO; +NALT50TA PO; -NITR0.4T48 SL; +NITR0.4T51 SL; +ONDA-103 PO; -POLY15DR31 EACHEYE; +POTA-206 PO; +SACU1TAB PO; +TRAZ-251 PO; +ZOLP10TA PO; -psyllium seed packet PO; -thiamine tablet PO
== END 2023-08-02 13:47 | disposition left against medical advice (07) ==
LOC: ER 09:41
DX: R69 Illness, unspecified (principal); Z53.21 Procedure and treatment not carried out due to patient leaving prior to being seen by health care provider

== ENCOUNTER 2025-04-10 22:21 | Emergency (ER) | payer MEDICARE, MEDICAID ==
[~2025-04-10] VITALS: Ht 175.3 cm; Wt 86.0 kg
[~2025-04-10 22:21] MED LIST changes: -ESOM40CA54 PO; +ESOM40CA66 PO; -NALT50TA PO; +NALT50TA5 PO; +ZOLP-679 PO; -ZOLP10TA PO
--- NOTE | 2025-04-10 22:33 | Physician Documentation ---
History of Present Illness ~ Chief Complaint: Shortness of Breath Stated Complaint: SOB Time Seen by MD: 22:31 Primary Medical Doctor: Unknown HPI Patient presents to the emergency room with feeling like she is swollen. Patient has history of congestive heart failure and states she has been taking her Bumex that has not been working. She denies significant shortness of breath but does state she has a decreased exercise tolerance. She denies any peripheral edema. She reports that her diagnosis of CHF was from reported bulimia in previous methamphetamine abuse. Medication Reconciliation Allergies: Coded Allergies: No Known Allergies (Unverified , 08/24/21) Scheduled Carvedilol (Carvedilol), 1 TAB PO BID, (Reported) Esomeprazole Magnesium (Esomeprazole Magnesium), 1 CAP PO DAILY, (Reported) Furosemide (Furosemide), 1 TAB PO TID, (Reported) Naltrexone Hcl (Naltrexone Hcl), 1 TAB PO DAILY Potassium Chloride (K-Dur), 10 MEQ PO DAILY Sacubitril/Valsartan (Entresto 24 mg-26 mg Tablet), 1 TAB PO BID, (Reported) Spironolactone (Spironolactone), 1 TAB PO DAILY, (Reported) Zolpidem Tartrate (Ambien), 1 TAB PO HS, (Reported) Scheduled PRN Levalbuterol Tartrate (Levalbuterol Tartrate Hfa), 2 PUFFS PO Q6H PRN for SOB or wheezing, (Reported) Lorazepam (Ativan), 1 TAB PO Q6H PRN for anxiety, (Reported) Nitroglycerin SL* (Nitrostat SL*), 1 TAB SL PRN PRN for Chest pain Q5min PRNx3-call MD, (Reported) Ondansetron HCl (Ondansetron HCl), 1 TAB PO DAILY PRN for nausea/vomiting, (Reported) Trazodone HCl (Trazodone HCl), 1 TAB PO HS PRN for sleep, (Reported) Past Medical History Past Medical History: Congestive Heart Failure, Hypertension, Gastritis, UTI, MRSA Abscess Past Surgical History: no surgical history Patient History: FH: heart disease FAMILY/OTHER Alcohol Use: Abuse Drug Use: methamphetamine Lives In: Homeless Occupation: employed Review of Systems ROS All review of systems negative except as per HPI Physical Exam Vital Signs: Weight: 86.000 Physical Exam General: Patient is awake, alert, oriented x4 in no acute distress Head: Normocephalic and atraumatic. Eyes: Conjunctival normal. EOMI. PERRL. ENT: Mucous membranes moist. Neck: Supple, trachea is midline. Chest: Clear to auscultation bilaterally without rales, rhonchi, or wheezes. There is no accessory muscle use or retractions. Cardiac: RRR without murmurs, gallops, or rubs. Extremities: Normal strength. Normal range of motion. No deformities or edema. Progress Results/Orders Results/Orders Orders - ROHAN BHATTI MD Chest,Single View (04/10/25 22:40) Monitor (04/10/25 22:22) Saline Lock (04/10/25 22:22) Oxygen (04/10/25 22:22) Electrocardiogram (04/10/25 22:22) Hs Troponin I W Calculations (04/11/25 00:22) Hs Troponin I W Calculations (04/11/25 01:22) Cbc/Diff (04/10/25 23:05) Completed Orders - ROHAN BHATTI MD Chest,Single View (04/10/25 22:40) BMP (04/10/25 22:22) PBNP (04/10/25 22:22) Hs Troponin I W Calculations (04/10/25 22:22) Vital Signs 04/10/25 04/10/25 22:31 22:37 Temp 98.4 Resp 24 B/P (MAP) 126/89 (101) Pulse Ox 96 O2 Flow Rate 0 Laboratory Tests Test 04/10/25 22:35 04/10/25 23:13 CBC Comment Basophilic Stippling Sodium Level 135 Potassium Level 3.8 Chloride Level 100 Carbon Dioxide Level 23.1 L Anion Gap 12 Blood Urea Nitrogen 40 H Creatinine 1.58 H Estimated GFR/1.73 m2 36 BUN/Creatinine Ratio 25.3 H Glucose Level 99 Calcium Level 8.5 Troponin I High Sensitivity 37 Pro-B-Type Natriuretic Peptide 3484 H Albumin 3.6 Chemistry Comments White Blood Count 4.9 Red Blood Count 3.88 L Hemoglobin 11.2 L Hematocrit 33.9 L Mean Corpuscular Volume 87.3 Mean Corpuscular Hemoglobin 28.9 Mean Corpuscular Hemoglobin Concent 33.1 Red Cell Distribution Width 23.4 H Platelet Count 192 Mean Platelet Volume 7.2 L Neutrophils (%) (Auto) 57.2 Lymphocytes (%) (Auto) 28.1 Monocytes (%) (Auto) 13.0 H Eosinophils (%) (Auto) 0.9 Basophils (%) (Auto) 0.8 Neutrophils # (Auto) 2.8 Lymphocytes # (Auto) 1.4 Monocytes # (Auto) 0.6 Eosinophils # (Auto) 0.0 Basophils # (Auto) 0.0 Medical Decision Making Findings Upon re-evaluation patient feels comfortable that has resting lying flat. She has passed the road test with a good pulse ox. Patient presented to the emergency room for evaluation of shortness of breath. Differentials include but are not limited to CHF exacerbation, pneumonia, anxiety, viral syndrome therefore emergent labs and imaging indicated. Chest x- ray is clear and although labs show an elevation of BNP she is also suffering from chronic kidney disease. She has passed the road test. She states that she gets her anxiety medication filled tomorrow and she feels that maybe this was all related to anxiety. Departure Disposition: HOME / SELF CARE / HOMELESS Impression: Primary Impression: Dyspnea Condition: Improved Discharge Instructions: Shortness of Breath, Adult Additional Instructions: Follow up with your doctor tomorrow Referrals: NO PRIMARY CARE PROVIDER (PCP) Education Educated: Patient Educated regarding: diagnosis, treatment, need for follow up Signature Scribe Signature: No scribe Attestation: The note accurately reflects work and decisions made by me.Rohan Bhatti MD 04/10/25 23:34 ROHAN BHATTI MD Apr 10, 2025 22:33
--- NOTE | 2025-04-10 22:55 | RADIOLOGY REPORT ---
CHEST RADIOGRAPH Indication: CP Technique: Single frontal view of the chest was obtained COMPARISON: CHEST,SINGLE VIEW on DOS: 04/01/23, CHEST,SINGLE VIEW on DOS: 02/12/22, CHEST,SINGLE VIEW on DOS: 10/11/21, CHEST,SINGLE VIEW on DOS: 09/25/20 FINDINGS: Lines and Tubes: None Lungs: Clear Pleura: No effusion. No pneumothorax. Cardiomediastinal contours: Cardiomegaly. Bones: Unremarkable IMPRESSION: 1. Cardiomegaly.
[2025-04-10 23:08] LABS: CREATININE 1.58 MG/DL (0.40-0.90); PRO BRAIN NATRIURETIC PEPTIDE 3484 PG/ML (0-125); TOTAL CARBON DIOXIDE 23.1 MMOL/L (24-32); eCRCL 48 ML/MIN; eGFR 36 ML/MIN
[2025-04-10 23:18] LABS: MEAN PLATELET VOLUME 7.2 FL (7.4-10.4); RED CELL DISTRIBUTION WIDTH 23.4 % (11.5-14.5)
[2025-04-10 23:31] LABS: PLATELET ESTIMATE NORMAL
[2025-04-11 00:35] VITALS: BP 113/94; PULSE 96; RESP 16; TEMP 98.4; O2SAT 96
--- NOTE | 2025-04-11 09:07 | ELECTROCARDIOGRAPH REPORT ---
[facility] Test Date: 2025-04-10 Test Time: 22:28:06 Pat Name: RUPALI DURAN Department: EMERGENCY ROOM Room: Gender: F Tower Crane Operator: : 1985 Requested By: CAMPOS LLAMAS Order Number: [id number] Reading MD: Measurements Intervals [place] Rate: 100 P: 54 CT: 178 QRS: -34 QRSD: 174 T: 129 QT: 419 QTc: 541 Interpretive Statements Sinus tachycardia Left atrial enlargement Left bundle branch block Baseline wander in lead(s) V3 Please click the below link to view image of tracing.
== END 2025-04-11 00:41 | disposition home or self-care (01) ==
LOC: ER 22:21
DX: R06.00 Dyspnea, unspecified (principal); I11.0 Hypertensive heart disease with heart failure; I50.9 Heart failure, unspecified; F15.90 Other stimulant use, unspecified, uncomplicated; F10.10 Alcohol abuse, uncomplicated; Y90.9 Presence of alcohol in blood, level not specified
CPT/HCPCS: 71045; 80048; 83880; 84484; 85008; 85025; 93005; 99285

== ENCOUNTER 2025-05-21 15:35 | Outpatient (CLI) | payer MEDICARE, MEDICAID ==
[~2025-05-21 15:35] MED LIST changes: -CARV3.122 PO; +COR3.125T PO; +EMPA10TA PO; +FURO-150 PO; -FURO40TA4 PO; -TRAZ-251 PO
[2025-05-21 16:22] LABS: CREATININE 1.11 MG/DL (0.40-0.90); PRO BRAIN NATRIURETIC PEPTIDE 1982 PG/ML (0-125); TOTAL CARBON DIOXIDE 23.4 MMOL/L (24-32); eGFR 54 ML/MIN
== END 2025-05-21 23:59 | disposition home or self-care (01) ==
LOC: RAD 15:35
PROVIDERS: ATTEND Nurse Practitioner Family
DX: I50.22 Chronic systolic (congestive) heart failure (principal)
CPT/HCPCS: 36415; 80048; 83880

== ENCOUNTER 2025-05-31 20:56 | Emergency (ER) | payer MEDICARE, MEDICAID ==
[~2025-05-31] VITALS: Ht 175.3 cm; Wt 81.0 kg
[2025-05-31 21:14] VITALS: BP 112/72; PULSE 79; RESP 16; TEMP 98; O2SAT 98
--- NOTE | 2025-06-01 00:16 | Physician Documentation ---
History of Present Illness ~ Chief Complaint: Foot pain Stated Complaint: FOOT PAIN Primary Medical Doctor: Unknown HPI This is a 40-year-old female who presents with one day of progressively worsening right foot pain, patient reports no injury to the foot though reports she is unable to bear what on the foot due to pain. Patient reports pain began in the pedal aspect of the foot and has spread up into her ankle and lower calf. Tetanus witin 5 years: Yes Medication Reconciliation Allergies: Coded Allergies: No Known Allergies (Unverified , 05/31/25) Scheduled Carvedilol (Carvedilol), 2 TAB PO Q12H Empagliflozin (Jardiance), 1 TAB PO DAILY Esomeprazole Magnesium (Esomeprazole Magnesium), 1 CAP PO DAILY, (Reported) Furosemide (Lasix), 40 MG PO DAILY Naltrexone Hcl (Naltrexone Hcl), 1 TAB PO DAILY Potassium Chloride (K-Dur), 10 MEQ PO DAILY Sacubitril/Valsartan (Entresto 24 mg-26 mg Tablet), 1 TAB PO BID, (Reported) Spironolactone (Spironolactone), 1 TAB PO DAILY Zolpidem Tartrate (Ambien), 1 TAB PO HS, (Reported) Scheduled PRN Levalbuterol Tartrate (Levalbuterol Tartrate Hfa), 2 PUFFS PO Q6H PRN for SOB or wheezing, (Reported) Lorazepam (Ativan), 1 TAB PO Q6H PRN for anxiety, (Reported) Nitroglycerin SL* (Nitrostat SL*), 1 TAB SL PRN PRN for Chest pain Q5min PRNx3- call MD, (Reported) Ondansetron HCl (Ondansetron HCl), 1 TAB PO DAILY PRN for nausea/vomiting, (Reported) Past Medical History Past Medical History: Congestive Heart Failure, Hypertension, Gastritis, UTI, MRSA Abscess Past Surgical History: no surgical history Patient History: FH: heart disease FAMILY/OTHER Alcohol Use: Abuse Drug Use: marijuana, methamphetamine, cocaine Lives with: Alone Lives In: Home Occupation: disabled Review of Systems ROS As stated above in the HPI, otherwise all systems are reviewed and negative. Physical Exam Vital Signs: Temperature: 98.0, Source: Temporal, Heart Rate: 79, Respiratory Rate: 16, BP: 112/72, Pulse Oximetry: 98, Weight: 81.000 Physical Exam VITALS: Reviewed and as above. GENERAL: Alert, nontoxic appearing, no apparent distress. RESPIRATORY: No increased work of breathing, no respiratory distress, speaking in full clear sentences CV: Brisk capillary refill of right foot MUSCULOSKELETAL: Right foot and ankle tender to palpation, pain limits ROM of right foot, no significant swelling, no ecchymosis, no erythema, NEURO: Sensation intact to right foot Progress Results/Orders Results/Orders Vital Signs 05/31/25 21:14 Temp 98.0 Pulse 79 Resp 16 B/P (MAP) 112/72 Pulse Ox 98 Medical Decision Making Findings MSE performed in triage and patient returned to ED lobby by nursing staff to await available ED room. Patient appears to have eloped from lobby General Diff Dx:Considerations: Include: Abrasion, Contusion, Fracture, Hematoma, Laceration, Neurovascular injury, Sprain Foot Diff Dx:Considerations: Include: Arthritis, Cellulitis, Dislocation, DJD, Gout, Septic Departure Disposition: 07 LEFT AWOL/ELOPED Impression: Primary Impression: Foot pain Qualified Codes: M79.671 - Pain in right foot Referrals: NO PRIMARY CARE PROVIDER (PCP) Signature Scribe Signature: No Scribe Attestation: The note accurately reflects work and decisions made by me.DOMINIQUE Palma 06/04/25 06:28 BENIGNO RICO Jun 01, 2025 00:16
--- NOTE | 2025-06-01 00:26 | RADIOLOGY REPORT ---
CLINICAL INDICATION: FOOT PAIN TECHNIQUE: DI FOOT, COMPLETE (3VW MIN) Comparison: None FINDINGS/IMPRESSION: : There is no evidence of acute fracture or dislocation. Soft tissues are unremarkable.
== END 2025-06-01 02:53 | disposition left against medical advice (07) ==
LOC: ER 20:56
DX: M79.671 Pain in right foot (principal); I11.0 Hypertensive heart disease with heart failure; I50.9 Heart failure, unspecified; F12.90 Cannabis use, unspecified, uncomplicated; F15.90 Other stimulant use, unspecified, uncomplicated; F14.90 Cocaine use, unspecified, uncomplicated
CPT/HCPCS: 73630; 99283

== ENCOUNTER 2025-06-01 14:34 | Outpatient (CLI) | payer MEDICARE, MEDICAID ==
[2025-06-01 15:11] LABS: MEAN PLATELET VOLUME 7.9 FL (7.4-10.4); RED CELL DISTRIBUTION WIDTH 22.8 % (11.5-14.5)
[2025-06-01 15:30] LABS: PLATELET ESTIMATE NORMAL
[2025-06-01 15:35] LABS: ELLIPTOCYTES FEW
== END 2025-06-01 23:59 | disposition home or self-care (01) ==
LOC: LAB 14:34
PROVIDERS: ATTEND Family Medicine
DX: S93.491A Sprain of other ligament of right ankle, initial encounter (principal); I10 Essential (primary) hypertension; X58.XXXA Exposure to other specified factors, initial encounter; Y93.89 Activity, other specified; Y92.89 Other specified places as the place of occurrence of the external cause; Y99.8 Other external cause status
CPT/HCPCS: 36415; 84550; 85008; 85025; 85651